=== PATIENT | male | born 1960 | race Caucasian/White ===

== ENCOUNTER 2016-05-01 09:45 | Emergency (ER) ==
[2016-05-01 09:52] VITALS: BP 133/87; TEMP 97.8; BMI 34.1
[2016-05-01] MEDS ORDERED: MORPHINE 4 MG/ML SYRINGE IM STA (10:05)
[2016-05-01] MEDS ORDERED: ZOFRAN 4 MG/2 ML IM STA (10:05)
[2016-05-01 10:24] LABS: BASOPHILS % (AUTO) 0.3 % (0.0-3.0); EOSINOPHILS # (AUTO) 0.2 K/ul (0.0-0.7); EOSINOPHILS % (AUTO) 2.1 % (0.0-7.0); HEMATOCRIT 47.5 % (42.0-52.0); HEMOGLOBIN 17.1 g/dl (14.0-18.0); IMMATURE GRANULOCYTE % (AUTO) 0.3 % (0.0-5.0); LYMPHOCYTES # (AUTO) 2.5 K/uL (0.60-3.4); LYMPHOCYTES % (AUTO) 32.8 (10.0-50.0); MEAN CORPUSCULAR HEMOGLOBIN 30.7 pg (27.0-31.0); MEAN CORPUSCULAR VOLUME 85.3 fl (80.0-94.0); MONOCYTES # (AUTO) 0.7 K/uL (0.4-2.0); MONOCYTES % (AUTO) 9.8 (0-10); NEUTROPHILS # (AUTO) 4.2 K/ul (2.0-6.9); NEUTROPHILS % (AUTO) 54.7; PLATELET COUNT 263 10^3/uL (140-440); RED BLOOD COUNT 5.57 10^6/ul (4.70-6.10); WHITE BLOOD COUNT 7.57 K/ul (4.2-10.2)
[2016-05-01 10:39] LABS: BILIRUBIN,URINE Negative (NEGATIVE); KETONES,URINE Negative (NEGATIVE); LEUKOCYTE ESTERASE ,URINE Negative (NEGATIVE); NITRITE,URINE Negative (NEGATIVE); PH,URINE 5.5 (5-9); PROTEIN,URINE Negative (NEGATIVE); URINE, BLOOD Trace-lysed (NEGATIVE)
[2016-05-01 10:41] LABS: ALBUMIN 3.8 g/dL (3.4-5.0); ALBUMIN/GLOBULIN RATIO 0.95; ANION GAP 14.3; BILIRUBIN,TOTAL 0.38 mg/dL (0.00-1.20); BUN/CREATININE RATIO 19.54; CALCIUM 9.4 mg/dL (8.2-10.2); CREATININE 1.33 mg/dL (0.60-1.10); POTASSIUM 4.3 mmol/L (3.5-5.1); TOTAL PROTEIN 7.8 g/dL (6.4-8.2)
[2016-05-01 10:42] LABS: ADD URINE MICROSCOPIC YES
--- NOTE | 2016-05-01 11:02 | CT ---
EXAM: CT of the abdomen pelvis without contrast History: Abdominal pain. Comparison: None available. Technique: Multiplanar CT images through the abdomen pelvis were obtained without the administratio n of IV contrast Findings: Lung bases are free of consolidation. No acute osseous abnormalities. Gallbladder is not well distended. Mild atherosclerotic vascular calcifications. No focal liver or splenic lesions. No peripancreatic inflammation. Adrenal glands are unremarkable. No renal stones and no hydronephrosis. The appendix is not dilated or inflamed. No bowel obstruction. No free air . No ascites. No bladder wall thickening. Prostatic calcifications. Prostate is not enlarged. N o perirectal inflammation. Small fat-containing bilateral inguinal hernias. Impression: No acute intra-abdominal or pelvic process.
--- NOTE | 2016-05-01 11:32 | US ---
EXAM: Testicular ultrasound HISTORY: Left scrotal pain for 2 days with no injury COMPARISON: Same day CT abdomen pelvis 05/01/2016 TECHNIQUE: Sonographic and Doppler evaluation of the testicles were performed. FINDINGS: The right testicle measures 4.7 x 2.0 x 3.1 cm. The epididymis is normal in appearance w ith to anechoic epididymal cyst measuring no greater than 0.4 cm and diameter. There is no varicoce le, hydrocele or mass. There is normal color Doppler flow without signs of torsion. The left testicle measures 4.3 x 1.9 x 3.0 cm. The epididymis is normal in appearance a single anec hoic epididymal cyst measuring 0.7 x 0.6 x 0.5 cm. There is no varicocele, hydrocele or mass. Ther e is normal color Doppler flow without signs of torsion. IMPRESSION: 1. No evidence of torsion. No acute abnormality of the left testicle. 2. Bilateral epididymal cysts are present.
--- NOTE | 2016-05-01 11:43 | ED.PDOC ---
General ED Provider: Dr. STEVE GUZMAN Chief Complaint: Abdominal Pain Stated Complaint: abdominal scrotal pain Time Seen by Physician: 10:00 (no trauma) Information Source: Patient Exam Limitations: No limitations Nursing and Triage Documentation Reviewed and Agree: Yes Complaint Exam - Complaint/Exam Patient Complains of: Reports: Scrotal pain Onset/Duration: 3 days Symptoms Are: Still present Timing: Intermittent Initial Severity: Mild Current Severity: Mild Location of Pain: Reports: Right, Left (lower abdomen) Character: Reports: Dull Aggravating: Reports: None Alleviating: Reports: None Associated Signs and Symptoms: Reports: Scrotal pain, Abdominal Pain. Denies: Diaphoresis, Back pain, Fever, Hematuria, Dysuria, Constipation, Blood in stool , Rectal pain, Appetite change, Nausea, Vomiting, Penile swelling, Penile discharge, Decreased urine output, Increased urine frequency, Increased thirst, Decreased activity, Lethargy, Scrotal swelling Review of Systems - Review Of Systems Constitutional: Reports: No symptoms Eyes: Reports: No symptoms Ears, Nose, Mouth, Throat: Reports: No symptoms Respiratory: Reports: No symptoms Cardiac: Reports: No symptoms GI: Reports: Abdominal pain : Reports: Other (scrotal pain) Musculoskeletal: Reports: No symptoms Skin: Reports: No symptoms Neurological: Reports: No symptoms Endocrine: Reports: No symptoms Hematologic/Lymphatic: Reports: No symptoms All Other Systems: Reviewed and Negative Past Medical History - Past Medical History Endocrine: Reports: None Cardiovascular: Reports: CAD, Hypertension Respiratory: Reports: None Hematological: Reports: None Gastrointestinal: Reports: None Genitourinary: Reports: None Neuro/Psych: Reports: None Musculoskeletal: Reports: None Cancer: Reports: None - Surgical History General Surgical History: Reports: None - Family History Family History: Reports: None - Social History Smoking Status: Current every day smoker, Heavy tobacco smoker Hx Substance Use: No Alcohol Screening: Occasionally Physical Exam - Physical Exam Appearance: Well-appearing, No pain distress, Well-nourished Eyes: ANDREA, EOMI, Conjunctiva clear ENT: Ears normal, Nose normal, Oropharynx normal Respiratory: Airway patent, Breath sounds clear, Breath sounds equal, Respirations nonlabored Cardiovascular: RRR, Pulses normal, No rub, No murmur GI/: Soft, Nontender, No masses, Bowel sounds normal, No Organomegaly Musculoskeletal: Normal strength, ROM intact, No edema, No calf tenderness Skin: Warm, Dry, Normal color Neurological: Sensation intact, Motor intact, Reflexes intact, Cranial nerves intact, Alert, Oriented Psychiatric: Affect appropriate, Mood appropriate Interpretation - Radiology Interpretation Radiology Interpretation By: Radiologist Radiology Results: No acute changes Re-Evaluation - Re-Evaluation Time of Re-Evaluation: 11:00 Status: Improved Vital Signs Stable: Yes Pain Level: 0 Appearance: NAD Lungs: Clear Skin: Warm and Dry Neuro: Alert and Oriented X3 CV: RRR - Re-Evaluation Time of Re-Evaluation: 11:43 Status: Improved Vital Signs Stable: Yes Pain Level: 0 Appearance: NAD Skin: Warm and Dry Neuro: Alert and Oriented X3 CV: RRR Critical Care Note - Critical Care Note Total Time (mins): 0 Course - Course Hematology/Chemistry: 05/01/16 10:04 05/01/16 10:18 Orders, Labs, Meds: Lab Review 05/01/16 05/01/16 05/01/16 10:04 10:10 10:18 WBC 7.57 RBC 5.57 Hgb 17.1 Hct 47.5 MCV 85.3 MCH 30.7 MCHC 36.0 H RDW Coeff of Denise 12.8 Plt Count 263 Immature Gran % (Auto) 0.3 Neut % (Auto) 54.7 Lymph % (Auto) 32.8 [place] % (Auto) 9.8 Eos % (Auto) 2.1 Baso % (Auto) 0.3 Immature Gran # (Auto) 0.0 Neut # 4.2 Lymph # 2.5 [place] # 0.7 Eos # 0.2 Baso # 0.0 Sodium 138 Potassium 4.3 Chloride 107 Carbon Dioxide 21 Anion Gap 14.3 BUN 26 H Creatinine 1.33 H Estimated GFR (MDRD) 56.00 BUN/Creatinine Ratio 19.54 Glucose 105 H Calcium 9.4 Total Bilirubin 0.38 AST 20 ALT 17 Alkaline Phosphatase 107 Total Protein 7.8 Albumin 3.8 Globulin 4.0 Albumin/Globulin Ratio 0.95 Urine Color Yellow Urine Clarity Clear Urine pH 5.5 Ur Specific [place] 1.020 Urine Protein Negative Urine Glucose (UA) Negative Urine Ketones Negative Urine Blood Trace-lysed Urine Nitrite Negative Urine Bilirubin Negative Urine Urobilinogen 0.2 Ur Leukocyte Esterase Negative Urine Microscopic RBC 2-5 Urine Microscopic WBC 0-2 Ur Squamous Epith Cells Not present Orders Category Date Time Status CBC W/ AUTO DIFF Stat LAB 05/01/16 10:04 Ordered COMPREHENSIVE METABOLIC PANEL Stat LAB 05/01/16 10:04 Ordered URINALYSIS C & S IF INDICATED Stat LAB 05/01/16 10:04 Uncollected URINALYSIS C & S IF INDICATED Stat LAB 05/01/16 10:10 Received Morphine Sulfate [Morphine 4 mg/ml Syringe] MEDS 05/01/16 10:05 Stat 4 mg IM ONCE STA Ondansetron HCl/Pf [Zofran 4 mg/2 ml] MEDS 05/01/16 10:05 Stat 4 mg IM ONCE STA CT ABDOMEN/PELVIS WO CONTRAST Stat RADS 05/01/16 10:04 Ordered ULTRASOUND SCROTUM [U/S SCROTUM] Stat RADS 05/01/16 10:35 Ordered Medications Discontinued Medications Generic Name Dose Route Start Last Admin Trade Name Freq PRN Reason Stop Dose Admin Morphine Sulfate 4 mg 05/01/16 10:05 05/01/16 10:24 Morphine 4 Mg/Ml Syringe IM 05/01/16 10:06 4 mg ONCE STA Administration Ondansetron HCl 4 mg 05/01/16 10:05 05/01/16 10:24 Zofran 4 Mg/2 Ml IM 05/01/16 10:06 4 mg ONCE STA Administration Vital Signs: Temp Pulse Resp BP Pulse Ox 05/01/16 09:45 97.8 F 62 20 133/87 96 Departure - Departure Time of Disposition: 11:43 Disposition: HOME SELF-CARE Discharge Problem: Abdominal pain Instructions: Abdominal Pain (ED), Pelvic Pain in Men (ED) Condition: Good Pt referred to PMD for follow-up: No Additional Instructions: Please call your Family Physician as soon as possible to schedule a follow-up appointment. Prescriptions: Hydrocodone/Acetaminophen [[place] 5-325 Tablet] 1 each PO Q6HR PRN #10 tablet PRN Reason: PAIN Allergies/Adverse Reactions: Allergies divalproex sodium [From Depakote] Allergy (Verified 05/01/16 09:54) lithium Allergy (Verified 05/01/16 09:54) Penicillins Allergy (Verified 05/01/16 09:54) Home Medications: Ambulatory Orders Citalopram Hydrobromide [Celexa] 20 mg PO @ hs #30 10/07/15 Diazepam [Valium] 10 mg PO QID #120 10/07/15 Diltiazem HCl [Cardizem] 30 mg PO BEDTIME 10/30/15 Hydrocodone/Acetaminophen [[place] 5-325 Tablet] 1 each PO Q6HR PRN #10 tablet Metoprolol Succinate 75 mg PO BID 05/01/16
== END 2016-05-01 11:53 | disposition home or self-care (01) ==
LOC: ED 09:45
DX: R10.32 Left lower quadrant pain (principal); N50.82 Scrotal pain; I25.10 Atherosclerotic heart disease of native coronary artery without angina pectoris; I10 Essential (primary) hypertension; F17.210 Nicotine dependence, cigarettes, uncomplicated; Z79.899 Other long term (current) drug therapy
CPT/HCPCS: 36415; 80053; 81001; 85025; 96372; 99282

== ENCOUNTER 2016-05-03 09:59 | Emergency (ER) ==
[2016-05-03 10:00] VITALS: BMI 34.1
[2016-05-03 10:02] VITALS: BP 153/100; TEMP 97.2
== END 2016-05-03 10:30 | disposition left against medical advice (07) ==
LOC: ED 09:59
DX: M54.5 Low back pain (principal)

== ENCOUNTER 2016-05-25 09:10 | Outpatient (CLI) ==
[2016-05-25 09:34] VITALS: BMI 34.0
== END 2016-05-25 09:11 ==
LOC: AMBL 09:10
PROVIDERS: ATTEND Emergency Medicine
DX: R05 Cough (principal); R51 Headache; R10.31 Right lower quadrant pain; R07.1 Chest pain on breathing; R73.9 Hyperglycemia, unspecified; R03.0 Elevated blood-pressure reading, without diagnosis of hypertension

== ENCOUNTER 2016-05-25 09:24 | Emergency (ER) ==
[2016-05-25 09:34] VITALS: BP 123/78; TEMP 100.2; BMI 34.0
[2016-05-25] MEDS ORDERED: MORPHINE 4 MG/ML SYRINGE IVP STA (09:37)
[2016-05-25] MEDS ORDERED: ZOFRAN 4 MG/2 ML IVP STA (09:37)
[2016-05-25] MEDS ORDERED: SOLU-MEDROL 125 MG IVP STA (09:43)
[2016-05-25] MEDS ORDERED: ROCEPHIN 1 GM in SODIUM CHLORIDE 100 ML IV STA (09:44)
[2016-05-25 10:03] LABS: ABG BASE EXCESS -2 (-2.0-2.0); ABG HCO3 21.7 (22.0-26.0); ABG PCO2 28.3 mmHg (35-45); ABG PH 7.494 (7.35-7.45); ABG TCO2 23 (22.0-28.0)
[2016-05-25 10:08] LABS: BASOPHILS % (AUTO) 0.4 % (0.0-3.0); EOSINOPHILS # (AUTO) 0.1 K/ul (0.0-0.7); EOSINOPHILS % (AUTO) 0.6 % (0.0-7.0); HEMATOCRIT 44.4 % (42.0-52.0); HEMOGLOBIN 15.7 g/dl (14.0-18.0); IMMATURE GRANULOCYTE % (AUTO) 0.2 % (0.0-5.0); LYMPHOCYTES # (AUTO) 1.2 K/uL (0.60-3.4); LYMPHOCYTES % (AUTO) 14.4 (10.0-50.0); MEAN CORPUSCULAR HEMOGLOBIN 30.4 pg (27.0-31.0); MEAN CORPUSCULAR HGB CONC 35.4 (31.8-35.4); MEAN CORPUSCULAR VOLUME 85.9 fl (80.0-94.0); MONOCYTES # (AUTO) 1.2 K/uL (0.4-2.0); MONOCYTES % (AUTO) 14.9 (0-10); NEUTROPHILS # (AUTO) 5.8 K/ul (2.0-6.9); NEUTROPHILS % (AUTO) 69.5; PLATELET COUNT 181 10^3/uL (140-440); RED BLOOD COUNT 5.17 10^6/ul (4.70-6.10); WHITE BLOOD COUNT 8.31 K/ul (4.2-10.2)
--- NOTE | 2016-05-25 10:14 | ED.PDOC ---
General ED Provider: Dr. IVAN NELSON JR Chief Complaint: Respiratory Complaint Stated Complaint: Cough, H/A, weak, hurts to breathe, cough. no Tylenol or Motrin Mild diarrhea. Sore throat today. Arrived per EMS. 2 packs per day. [ End ]4 days 100.2 92 28 93 123/78 12/12 xiomara last noc. has had neurontin in past unable to afford. 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 Time Seen by Physician: 10:13 Mode of Arrival: Walk-In Information Source: Patient Exam Limitations: No limitations Nursing and Triage Documentation Reviewed and Agree: No Review of Systems - Review Of Systems Constitutional: Reports: Fever, Malaise, Weakness Eyes: Reports: Pain, Photophobia Ears, Nose, Mouth, Throat: Reports: Throat pain Respiratory: Reports: Cough Cardiac: Reports: Chest pain (pleuritic only) GI: Reports: Abdominal pain (ruq with cough), Nausea : Reports: No symptoms Musculoskeletal: Reports: No symptoms Skin: Reports: No symptoms Neurological: Reports: Headache Endocrine: Reports: No symptoms Hematologic/Lymphatic: Reports: No symptoms All Other Systems: Other Past Medical History - Past Medical History Endocrine: Reports: None Cardiovascular: Reports: CAD, Hypertension, A-Fib Respiratory: Reports: None Hematological: Reports: None Gastrointestinal: Reports: None Genitourinary: Reports: None Neuro/Psych: Reports: None Musculoskeletal: Reports: None Cancer: Reports: None - Surgical History General Surgical History: Reports: None, Other (tympanic mastoidectomy) - Family History Family History: Reports: None - Social History Smoking Status: Current every day smoker, Heavy tobacco smoker 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) Alcohol Screening: None Physical Exam - Physical Exam Appearance: Ill-appearing, Obese Ill-appearing: Moderate Pain Distress: Moderate Eyes: ANDREA, EOMI, Conjunctiva clear ENT: Ears normal, Nose normal, Oropharynx normal, Erythema (throat) Neck: Supple Respiratory: Airway patent, Rhonchi, Wheezes Cardiovascular: RRR, Pulses normal, No rub, No murmur GI/: Soft, Nontender, No masses, Bowel sounds normal, No Organomegaly Musculoskeletal: Normal strength, ROM intact, No edema, No calf tenderness Skin: Warm, Dry, Normal color Neurological: Sensation intact, Motor intact, Reflexes intact, Cranial nerves intact, Alert, Oriented Psychiatric: Anxious Interpretation - Radiology Interpretation Radiology Interpretation By: Radiologist Radiology Results: Negative Exam Interpreted: CXR Re-Evaluation - Re-Evaluation Time of Re-Evaluation: 12:22 (states not on neurontin but also states stopped xarelto because of weakness while taking it- knows it is to prevent [facility](no evidence cva today)) Status: Improved Critical Care Note - Critical Care Note Total Time (mins): 0 Course - Course Hematology/Chemistry: 05/25/16 10:00 05/25/16 10:00 Orders, Labs, Meds: Lab Review 05/25/16 05/25/16 09:39 10:00 WBC 8.31 RBC 5.17 Hgb 15.7 Hct 44.4 MCV 85.9 MCH 30.4 MCHC 35.4 RDW Coeff of Denise 13.0 Plt Count 181 Immature Gran % (Auto) 0.2 Neut % (Auto) 69.5 Lymph % (Auto) 14.4 [place] % (Auto) 14.9 H Eos % (Auto) 0.6 Baso % (Auto) 0.4 Immature Gran # (Auto) 0.0 Neut # 5.8 Lymph # 1.2 [place] # 1.2 Eos # 0.1 Baso # 0.0 D-Dimer 0.70 Puncture Site Rbrach O2 Saturation 97.0 ABG pH 7.494 H ABG pCO2 28.3 L ABG pO2 83.0 L ABG HCO3 21.7 L ABG Total CO2 23 ABG Base Excess -2 FiO2 % 21.0 Sodium 132 L Potassium 4.3 Chloride 102 Carbon Dioxide 22 Anion Gap 12.3 BUN 15 Creatinine 1.03 Estimated GFR (MDRD) 75.00 BUN/Creatinine Ratio 14.56 Glucose 109 H Lactic Acid 5.9 Calcium 9.2 Total Bilirubin 0.64 AST 26 ALT 17 Alkaline Phosphatase 81 Total Creatine Kinase 330 CK-MB (CK-2) 1.2 CK-MB (CK-2) % 0.70373 Troponin I < 0.0100 B-Natriuretic Peptide 37 Total Protein 8.0 Albumin 3.6 Globulin 4.4 Albumin/Globulin Ratio 0.82 Procalcitonin 0.08 Orders Category Date Time Status ABG DRAW REQUEST Stat CARDIO 05/25/16 09:39 Completed EKG-(ED ONLY) Stat CARDIO 05/25/16 09:37 Completed ED IV/MEDIPORT/POWERPORT .ONCE EMERGENCY 05/25/16 09:37 Active ABG Stat LAB 05/25/16 09:39 Completed B-TYPE NATRIURETIC PEPTIDE Stat LAB 05/25/16 10:00 Completed BLOOD CULTURE Stat LAB 05/25/16 10:00 Received CBC W/ AUTO DIFF Stat LAB 05/25/16 10:00 Completed COMPREHENSIVE METABOLIC PANEL Stat LAB 05/25/16 10:00 Completed CREATINE KINASE Stat LAB 05/25/16 10:00 Completed D-DIMER Stat LAB 05/25/16 10:00 Completed LACTIC ACID Stat LAB 05/25/16 10:00 Completed PROCALCITONIN Stat LAB 05/25/16 10:00 Completed TROPONIN I Stat LAB 05/25/16 10:00 Completed 0.9 % Sodium Chloride [Saline Flush] MEDS 05/25/16 09:37 Active 1 syr IVF PRN PRN Ceftriaxone Sodium [Rocephin] MEDS 05/25/16 10:19 Discontinued 1 gm .ROUTE .STK-MED ONE Ceftriaxone Sodium [Rocephin] 1 gm MEDS 05/25/16 09:44 Discontinued 0.9 % Sodium Chloride [Sodium Chloride] 100 ml IV ONCE Methylprednisolone Sod Succ/Pf [Solu-Medrol 125 mg] MEDS 05/25/16 09:43 Discontinued 125 mg IVP ONCE STA Morphine Sulfate [Morphine 4 mg/ml Syringe] MEDS 05/25/16 09:37 Discontinued 4 mg IVP ONCE STA Ondansetron HCl/Pf [Zofran 4 mg/2 ml] MEDS 05/25/16 09:37 Discontinued 4 mg IVP ONCE STA CHEST, 2 VIEWS PA & LAT Stat RADS 05/25/16 11:10 Completed Medications Generic Name Dose Route Start Last Admin Trade Name Freq PRN Reason Stop Dose Admin Sodium Chloride 1 syr 05/25/16 09:37 05/25/16 10:39 Saline Flush IVF 1 syr PRN PRN Administration To flush IV Discontinued Medications Generic Name Dose Route Start Last Admin Trade Name Freq PRN Reason Stop Dose Admin Ceftriaxone Sodium 1 gm/ 100 mls @ 100 mls/hr 05/25/16 09:44 05/25/16 10:44 Sodium Chloride IV 05/25/16 10:43 100 mls/hr ONCE STA Administration Methylprednisolone Sodium Succinate 125 mg 05/25/16 09:43 05/25/16 10:42 Solu-Medrol 125 Mg IVP 05/25/16 09:44 125 mg ONCE STA Administration Morphine Sulfate 4 mg 05/25/16 09:37 05/25/16 10:33 Morphine 4 Mg/Ml Syringe IVP 05/25/16 09:38 4 mg ONCE STA Administration Ondansetron HCl 4 mg 05/25/16 09:37 05/25/16 10:37 Zofran 4 Mg/2 Ml IVP 05/25/16 09:38 4 mg ONCE STA Administration Vital Signs: Temp Pulse Resp BP Pulse Ox 05/25/16 09:27 100.2 F H 92 H 28 H 123/78 93 L KRYSTYNA Risk Score KRYSTYNA Risk Score: Risk Score Odds of by 30D 0 0.1 (0.1-0.2) 1 0.3 (0.2-0.3) 2 0.4 (0.3-0.5) 3 0.7 (0.6-0.9) 4 1.2 (1.0-1.5) 5 2.2 (1.9-2.6) 6 3.0 (2.5-3.6) 7 4.8 (3.8-6.1) Departure - Departure Time of Disposition: 12:15 Disposition: HOME SELF-CARE Discharge Problem: URTI (acute upper respiratory infection) Instructions: Upper Respiratory Infection (ED) Condition: Fair Pt referred to PMD for follow-up: Yes Additional Instructions: home rest tylenol or motrin for symptoms may use cough medication recheck PMD one week may follow with [facility] Prescriptions: Guaifenesin/Codeine Phosphate [Robitussin AC Syrup] 10 ml PO Q6H PRN #240 ml PRN Reason: Cough Ibuprofen [Motrin] 600 mg PO QID PRN #30 tablet PRN Reason: PAIN Allergies/Adverse Reactions: Allergies divalproex sodium [From Depakote] Allergy (Verified 05/25/16 09:34) lithium Allergy (Verified 05/25/16 09:34) Penicillins Allergy (Verified 05/25/16 09:34) Home Medications: Ambulatory Orders Citalopram Hydrobromide [Celexa] 20 mg PO @ hs #30 10/07/15 Diazepam [Valium] 10 mg PO QID PRN #120 10/07/15 Diltiazem HCl [Cardizem] 30 mg PO BEDTIME 10/30/15 Metoprolol Succinate 75 mg PO BID 05/01/16 Guaifenesin/Codeine Phosphate [Robitussin AC Syrup] 10 ml PO Q6H PRN #240 ml Ibuprofen [Motrin] 600 mg PO QID PRN #30 tablet 05/25/16 Rivaroxaban [Xarelto] 10 mg PO DAILY 05/25/16
[2016-05-25] MEDS ORDERED: ROCEPHIN ONE (10:19)
[2016-05-25 10:46] LABS: ALANINE AMINOTRANSFERASE 17 U/L (12-78); ALBUMIN 3.6 g/dL (3.4-5.0); ALBUMIN/GLOBULIN RATIO 0.82; ALKALINE PHOSPHATASE 81 U/L (50-136); ANION GAP 12.3; ASPARTATE AMINO TRANSFERASE 26 U/L (15-37); BILIRUBIN,TOTAL 0.64 mg/dL (0.00-1.20); BLOOD UREA NITROGEN 15 mg/dL (7-18); BUN/CREATININE RATIO 14.56; CALCIUM 9.2 mg/dL (8.2-10.2); CARBON DIOXIDE 22 mmol/L (21-32); CHLORIDE 102 mmol/L (98-107); CREATINE KINASE 330 U/L; CREATININE 1.03 mg/dL (0.60-1.10); GLUCOSE 109 mg/dL (70-100); POTASSIUM 4.3 mmol/L (3.5-5.1); SODIUM 132 mmol/L (136-145)
[2016-05-25 10:47] LABS: CREATINE KINASE MB 1.2 ng/ml (0.0-3.6)
--- NOTE | 2016-05-25 11:35 | DI ---
Examination: Two radiographic images of the chest. Comparison: 10/13/2013. Reason for study: Cough. FINDINGS: No pneumothorax, pleural effusion, or focal consolidation. The cardiac silhouette is not enlarged. Impression: No acute cardiopulmonary process.
== END 2016-05-25 12:27 | disposition home or self-care (01) ==
LOC: ED 09:24
DX: J06.9 Acute upper respiratory infection, unspecified (principal); F17.210 Nicotine dependence, cigarettes, uncomplicated; Z79.899 Other long term (current) drug therapy
CPT/HCPCS: 36415; 80053; 82550; 82553; 82803; 83605; 83880; 84145; 84484; 85025; 85379; 87040; 93005; 93010; 96365; 96375; 99283

== ENCOUNTER 2016-07-11 14:43 | Emergency (ER) ==
[2016-07-11 14:43] VITALS: BMI 34.0
[2016-07-11 14:48] VITALS: BP 133/81; TEMP 98
--- NOTE | 2016-07-11 15:15 | ED.PDOC ---
General ED Provider: Dr. IVAN NELSON JR Chief Complaint: Chest Wall Injury/Pain Stated Complaint: fell aprox 6 foot onto ladder and hurt left lower ribs. also has pain redness and bruising to abd[ End ]15 min 98.0 57 22 98% 133/81 8/10. tympanic mastoidectomy htn afib cad Time Seen by Physician: 15:07 Mode of Arrival: Walk-In Information Source: Patient Exam Limitations: No limitations Nursing and Triage Documentation Reviewed and Agree: No Review of Systems - Review Of Systems Constitutional: Reports: Malaise Eyes: Reports: No symptoms Ears, Nose, Mouth, Throat: Reports: No symptoms Respiratory: Reports: No symptoms Cardiac: Reports: No symptoms GI: Reports: No symptoms : Reports: No symptoms Musculoskeletal: Reports: Back pain, Muscle pain (left chest wall ) Skin: Reports: Lesions (abrasion laft thigh and left inner upper arm) All Other Systems: Other Past Medical History - Past Medical History Endocrine: Reports: None Cardiovascular: Reports: CAD, Hypertension, A-Fib Respiratory: Reports: None Hematological: Reports: None Gastrointestinal: Reports: None Genitourinary: Reports: None Neuro/Psych: Reports: None Musculoskeletal: Reports: None Cancer: Reports: None - Surgical History General Surgical History: Reports: None, Other (tympanic mastoidectomy) - Family History Family History: Reports: None - Social History Smoking Status: Current every day smoker, Heavy tobacco smoker 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) Alcohol Screening: None Physical Exam - Physical Exam Appearance: Ill-appearing Ill-appearing: Mild Pain Distress: Mild Eyes: ANDREA, EOMI, Conjunctiva clear ENT: Ears normal, Nose normal, Oropharynx normal Neck: Supple Respiratory: Airway patent, Breath sounds clear, Breath sounds equal, Respirations nonlabored Cardiovascular: RRR, Pulses normal, No rub, No murmur GI/: Soft, Nontender, No masses, Bowel sounds normal, No Organomegaly Musculoskeletal: Normal strength, ROM intact, No edema, No calf tenderness ( tender left chest wall) Skin: Warm, Dry, Normal color (note lesions) Neurological: Sensation intact, Motor intact, Reflexes intact, Cranial nerves intact, Alert, Oriented Critical Care Note - Critical Care Note Total Time (mins): 0 Course - Course Orders, Labs, Meds: Orders Category Date Time Status Hydrocodone Bit/Acetaminophen [[place] 7.5-325] MEDS 07/11/16 15:33 Discontinued 1 tab PO ONCE STA CT ABDOMEN/PELVIS WO CONTRAST Stat RADS 07/11/16 15:15 Completed RIBS, W/PA CHEST LEFT Stat RADS 07/11/16 15:07 Completed Medications Discontinued Medications Generic Name Dose Route Start Last Admin Trade Name Peterq PRN Reason Stop Dose Admin Acetaminophen/Hydrocodone Bitart 1 tab 07/11/16 15:33 07/11/16 15:43 [place] 7.5-325 PO 07/11/16 15:34 1 tab ONCE STA Administration Vital Signs: Temp Pulse Resp BP Pulse Ox 07/11/16 14:43 98.0 F 57 L 22 133/81 98 Departure - Departure Time of Disposition: 16:26 Disposition: HOME SELF-CARE Discharge Problem: Chest wall pain, Chest injury, Contusion Instructions: Costochondritis (ED), Acute Abdominal Pain (ED) Condition: Good Pt referred to PMD for follow-up: Yes Additional Instructions: Clear liquids today and until no nausea and pain decreasing return if pain increasing or vomiting Tylenol 500 four times a day [place] for pain not controlled by Tylenol limit acetaminophen to 4000mg per 24 hours should be improved in three days may use Motrin or aleve (NOT BOTH) for pain not controlled by Tylenol Prescriptions: Hydrocodone Bit/Acetaminophen [[place] 5-325] 1 - 2 tab PO Q6HR PRN #12 tablet PRN Reason: pain Allergies/Adverse Reactions: Allergies divalproex sodium [From Depakote] Allergy (Verified 07/11/16 14:48) lithium Allergy (Verified 07/11/16 14:48) Penicillins Allergy (Verified 07/11/16 14:48) Home Medications: Ambulatory Orders Citalopram Hydrobromide [Celexa] 20 mg PO @ hs #30 10/07/15 Diazepam [Valium] 10 mg PO QID PRN #120 10/07/15 Diltiazem HCl [Cardizem] 30 mg PO BEDTIME 10/30/15 Metoprolol Succinate 75 mg PO BID 05/01/16 Ibuprofen [Motrin] 600 mg PO QID PRN #30 tablet 05/25/16 Hydrocodone Bit/Acetaminophen [[place] 5-325] 1 - 2 tab PO Q6HR PRN #12 tablet 11/19
[2016-07-11] MEDS ORDERED: NORCO 7.5-325 PO STA (15:33)
--- NOTE | 2016-07-11 15:55 | DI ---
EXAM: Radiographs, chest and left rib HISTORY: Initial presentation for left lower rib pain following a fall. COMPARISON: 05/25/2016. TECHNIQUE: Four views. FINDINGS: Heart size is normal. Lungs are clear without pleural effusion or pneumothorax. No left rib fracture or other acute osseous abnormality detected. IMPRESSION: No acute post-traumatic abnormality of the chest.
--- NOTE | 2016-07-11 15:59 | CT ---
EXAM: CT Abdomen without contrast. CT Pelvis without contrast. HISTORY: Initial presentation for left upper quadrant pain and lower left rib pain following a fall . COMPARISON: 05/01/2016. TECHNIQUE: Multiple axial images of the abdomen and pelvis were obtained without intravenous contra st. Images were reformatted in the coronal plane. FINDINGS: Please note that evaluation of the abdominal and pelvic structures is limited due to lack of intravenous contrast. The lung bases are clear. Degenerative changes present in the spine. No acute osseous abnormality identified. No left lower rib fracture identified. The liver, gallbladder, pancreas, spleen, adrenal glands, and kidneys are without acute abnormality. The bowel is normal in course and caliber without evidence for obstruction or inflammatory process. The appendix is normal. Urinary bladder is unremarkable. Prostatic calcifications noted. No free fluid or free air identified. Atherosclerotic calcifications are present. IMPRESSION: No acute abnormality within the abdomen or pelvis.
== END 2016-07-11 16:45 | disposition home or self-care (01) ==
LOC: ED 14:43
DX: S29.9XXA Unspecified injury of thorax, initial encounter (principal); S30.1XXA Contusion of abdominal wall, initial encounter; M54.9 Dorsalgia, unspecified; S70.312A Abrasion, left thigh, initial encounter; S40.812A Abrasion of left upper arm, initial encounter; W17.89XA Other fall from one level to another, initial encounter; F17.210 Nicotine dependence, cigarettes, uncomplicated
CPT/HCPCS: 99283

== ENCOUNTER 2016-07-25 15:53 | Emergency (ER) ==
[2016-07-25 15:58] VITALS: BP 162/110; TEMP 99.7; BMI 32.5
[2016-07-25] MEDS ORDERED: NORCO 10-325 PO STA (16:13)
[2016-07-25 16:33] LABS: BASOPHILS % (AUTO) 0.2 % (0.0-3.0); EOSINOPHILS # (AUTO) 0.2 K/ul (0.0-0.7); EOSINOPHILS % (AUTO) 2.5 % (0.0-7.0); HEMATOCRIT 46.7 % (42.0-52.0); HEMOGLOBIN 16.5 g/dl (14.0-18.0); IMMATURE GRANULOCYTE % (AUTO) 0.1 % (0.0-5.0); LYMPHOCYTES # (AUTO) 2.7 K/uL (0.60-3.4); LYMPHOCYTES % (AUTO) 33.6 (10.0-50.0); MEAN CORPUSCULAR HEMOGLOBIN 30.7 pg (27.0-31.0); MEAN CORPUSCULAR HGB CONC 35.3 (31.8-35.4); MEAN CORPUSCULAR VOLUME 86.8 fl (80.0-94.0); MONOCYTES # (AUTO) 0.7 K/uL (0.4-2.0); NEUTROPHILS # (AUTO) 4.4 K/ul (2.0-6.9); NEUTROPHILS % (AUTO) 54.6; PLATELET COUNT 181 10^3/uL (140-440); RED BLOOD COUNT 5.38 10^6/ul (4.70-6.10); WHITE BLOOD COUNT 8.13 K/ul (4.2-10.2)
[2016-07-25 16:51] LABS: ALBUMIN 3.8 g/dL (3.4-5.0); ALBUMIN/GLOBULIN RATIO 1.09; ANION GAP 13.7; BILIRUBIN,TOTAL 0.48 mg/dL (0.00-1.20); BUN/CREATININE RATIO 16.03; CALCIUM 9.2 mg/dL (8.2-10.2); CREATININE 1.06 mg/dL (0.60-1.10); POTASSIUM 3.7 mmol/L (3.5-5.1); TOTAL PROTEIN 7.3 g/dL (6.4-8.2)
--- NOTE | 2016-07-25 17:47 | CT ---
EXAM: CT scan of the abdomen and pelvis with contrast HISTORY: Pain, injury TECHNIQUE: Imaging of the abdomen and pelvis was performed following the intravenous administration of contrast. 3 mm thin axial images and coronal and sagittal reconstructions were provided for int erpretation. Comparison 07/11/2016 CT scan of the abdomen and pelvis. FINDINGS: The liver, spleen, pancreas, adrenal glands and kidneys appear normal. The proximal uret ers are normal size. The small and large bowel loops are normal caliber. No retroperitoneal abnorm alities are seen. The appendix appears normal. The helical images obtained through the pelvis demonstrate a normal appearance of the rectum, urinar y bladder. There is no free fluid seen within the pelvis. Lung bases are clear. There is a questi onable nondisplaced fracture of the lateral aspect of the left ninth rib. Additional nondisplaced fr acture is suspected along the lateral left eighth rib. The findings are seen on sagittal reconstruct ion image number 19. No vertebral body fractures are seen. The sacrum appears intact. The femoral h ead are seen in normal position. The femoral neck appear intact. IMPRESSION: There is suspicion for nondisplaced fractures of the lateral aspect of the left eighth and ninth ribs. No other traumatic abnormalities are seen within the abdomen and pelvis.
--- NOTE | 2016-07-25 17:53 | CT ---
EXAM: CT scan of the thoracic spine without contrast HISTORY: Pain, trauma compared to previous. TECHNIQUE: Helical imaging of the thoracic spine was performed without contrast. Sagittal and [place] n[place] reconstructions and axial images were provided for interpretation. FINDINGS: The alignment of the thoracic and lumbar spine appears normal. The paraspinal soft tissu es are normal. The spinous processes are intact. IMPRESSION: No acute fracture dislocation seen within the thoracic spine.
--- NOTE | 2016-07-25 18:02 | ED.PDOC ---
General ED Provider: Dr. STEVE GUZMAN Chief Complaint: Chest Wall Injury/Pain Stated Complaint: chest wall pain left side Time Seen by Physician: 16:00 (fall 2 weeks ago c/o left ribs pain ) Mode of Arrival: Walk-In Information Source: Patient Exam Limitations: No limitations Nursing and Triage Documentation Reviewed and Agree: Yes (upper left sided abdominal pain , upper back pain) Trauma/Injury Complaint Exam - Trauma Complaint/Exam Location of Pain or Injury: Reports: Chest, Abdomen, Back (thoracic) Mechanism of Injury: Reports: Fall (2 weeks ago) Onset/Duration: 1 4days Symptoms Are: Still present Timing of Treatment: Day Initial Severity: Moderate Current Severity: Moderate Character: Reports: Aching Aggravating: Reports: None Alleviating: Reports: None Associated Signs and Symptoms: Denies: LOC, Confusion, Memory loss, Lethargy, Vomiting, Bleeding, Bruising, Swelling, Extremity disuse, Painful respiration, Hoarseness, Dysphagia, Hemoptysis, Significant blood loss Related History: Reports: Similar episode Penetrating Injury Risk Factors: Reports: None Nexus Low Risk Criteria: No post-midline CS tender, No evidence of intoxicat., No Altered LOC, No focal neuro deficit, No distracting injuries Glascow Coma Scale (see protocol): 15 Compartment Syndrome Risk Factors: Present: Pain (chest wall, upper back not cervical) Skin Findings: Present: Normal findings Differential Diagnoses: Fracture, Laceration, Sprain, Strain Review of Systems - Review Of Systems Constitutional: Reports: No symptoms Eyes: Reports: No symptoms Ears, Nose, Mouth, Throat: Reports: No symptoms Respiratory: Reports: No symptoms Cardiac: Reports: No symptoms GI: Reports: No symptoms : Reports: No symptoms Musculoskeletal: Reports: Back pain (chest wall pain) Skin: Reports: No symptoms Neurological: Reports: No symptoms Endocrine: Reports: No symptoms Hematologic/Lymphatic: Reports: No symptoms All Other Systems: Reviewed and Negative Past Medical History - Past Medical History Endocrine: Reports: None Cardiovascular: Reports: CAD, Hypertension, A-Fib Respiratory: Reports: None Hematological: Reports: None Gastrointestinal: Reports: None Genitourinary: Reports: None Neuro/Psych: Reports: None Musculoskeletal: Reports: None Cancer: Reports: None - Surgical History General Surgical History: Reports: None, Other (tympanic mastoidectomy) - Family History Family History: Reports: None - Social History Smoking Status: Current every day smoker, Heavy tobacco smoker 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) Alcohol Screening: None Physical Exam - Physical Exam Appearance: Well-appearing, No pain distress, Well-nourished Eyes: ANDREA, EOMI, Conjunctiva clear ENT: Ears normal, Nose normal, Oropharynx normal Respiratory: Airway patent, Breath sounds clear, Breath sounds equal, Respirations nonlabored Cardiovascular: RRR, Pulses normal, No rub, No murmur GI/: Soft, Nontender, No masses, Bowel sounds normal, No Organomegaly Musculoskeletal: Normal strength, ROM intact, No edema, No calf tenderness Skin: Warm, Dry, Normal color Neurological: Sensation intact, Motor intact, Reflexes intact, Cranial nerves intact, Alert, Oriented Psychiatric: Affect appropriate, Mood appropriate Interpretation - Radiology Interpretation Radiology Interpretation By: Radiologist Radiology Results: No acute changes Critical Care Note - Critical Care Note Total Time (mins): 0 Course - Course Hematology/Chemistry: 07/25/16 16:25 07/25/16 16:25 Orders, Labs, Meds: Lab Review 07/25/16 16:25 WBC 8.13 RBC 5.38 Hgb 16.5 Hct 46.7 MCV 86.8 MCH 30.7 MCHC 35.3 RDW Coeff of Denise 12.7 Plt Count 181 Immature Gran % (Auto) 0.1 Neut % (Auto) 54.6 Lymph % (Auto) 33.6 [place] % (Auto) 9.0 Eos % (Auto) 2.5 Baso % (Auto) 0.2 Immature Gran # (Auto) 0.0 Neut # 4.4 Lymph # 2.7 [place] # 0.7 Eos # 0.2 Baso # 0.0 Sodium 139 Potassium 3.7 Chloride 108 H Carbon Dioxide 21 Anion Gap 13.7 BUN 17 Creatinine 1.06 Estimated GFR (MDRD) 73.00 BUN/Creatinine Ratio 16.03 Glucose 147 H Calcium 9.2 Total Bilirubin 0.48 AST 28 ALT 23 Alkaline Phosphatase 125 Total Protein 7.3 Albumin 3.8 Globulin 3.5 Albumin/Globulin Ratio 1.09 Orders Category Date Time Status NPO REMINDER: IMAGING ONCE CARE 07/25/16 16:13 Completed CBC W/ AUTO DIFF Stat LAB 07/25/16 16:25 Completed COMPREHENSIVE METABOLIC PANEL Stat LAB 07/25/16 16:25 Completed Hydrocodone Bit/Acetaminophen [[place] 10-325] MEDS 07/25/16 16:13 Discontinued 1 tab PO ONCE STA CT ABDOMEN/PELVIS W CONTRAST Stat RADS 07/25/16 16:[address] THORACIC SPINE W/O CONTRAST Stat RADS 07/25/16 16:11 Completed Medications Discontinued Medications Generic Name Dose Route Start Last Admin Trade Name Peterq PRN Reason Stop Dose Admin Acetaminophen/Hydrocodone Bitart 1 tab 07/25/16 16:13 07/25/16 16:26 [place] 10-325 PO 07/25/16 16:14 1 tab ONCE STA Administration Vital Signs: Temp Pulse Resp BP Pulse Ox 07/25/16 15:54 99.7 F H 81 20 162/110 H 96 Departure - Departure Time of Disposition: 18:02 (nurse present during D/C INSTRUCTION) Disposition: HOME SELF-CARE Discharge Problem: Chest wall pain, Chest injury Fracture of rib Qualifiers: Encounter type: initial encounter Fracture type: closed Laterality: left Instructions: Rib Fracture (ED) Condition: Good Pt referred to PMD for follow-up: No Additional Instructions: Please call your Family Physician as soon as possible to schedule a follow-up appointment. Allergies/Adverse Reactions: Allergies divalproex sodium [From Depakote] Allergy (Verified 07/25/16 15:59) lithium Allergy (Verified 07/25/16 15:59) Penicillins Allergy (Verified 07/25/16 15:59) Home Medications: Ambulatory Orders Citalopram Hydrobromide [Celexa] 20 mg PO @ hs #30 10/07/15 Diazepam [Valium] 10 mg PO QID PRN #120 10/07/15 Diltiazem HCl [Cardizem] 30 mg PO BEDTIME 10/30/15 Metoprolol Succinate 75 mg PO BID 05/01/16
== END 2016-07-25 18:13 | disposition home or self-care (01) ==
LOC: ED 15:53
DX: S05.01XA Injury of conjunctiva and corneal abrasion without foreign body, right eye, initial encounter (principal)
CPT/HCPCS: 36415; 80053; 85025; 99282

== ENCOUNTER 2017-03-05 14:49 | Emergency (ER) ==
[2017-03-05 14:52] VITALS: BP 173/107; TEMP 99.6; BMI 34.0
--- NOTE | 2017-03-05 15:05 | ED.PDOC ---
General ED Provider: Dr. STEVE GUZMAN Chief Complaint: Sore Throat Stated Complaint: sore throat Time Seen by Physician: 15:00 Mode of Arrival: Walk-In Information Source: Patient Exam Limitations: No limitations Nursing and Triage Documentation Reviewed and Agree: Yes Reviewed sepsis parameters & appropriate labs ordered?: Yes (seen with martina at all times ) System Inflammatory Response Syndrome: Not Applicable Sepsis Protocol: For patient's 13 years and over: Temp is 96.8 and below OR 101 and greater Pulse >90 BPM Resp >20/minute Acutely Altered Mental Status Are patient's symptoms suggestive of a new infection, such as: -Pneumonia -Skin, Soft Tissue -Endocarditis -UTI -Bone, Joint Infection -Implantable Device -Acute Abdominal Infection -Wound Infection -Meningitis -Blood Stream Catheter Infection -Unknown EENT Complaint Exam - Throat Complaint/Exam Onset/Duration: 7 days with post nasal drip Symptoms Are: Still present Timimg: Intermittent Initial Severity: Mild Current Severity: Mild Aggravating: Reports: Eating Alleviating: Reports: None Associated Signs and Symptoms: Reports: Dysphagia, Cough, Nasal congestion. Denies: Fever, Drooling, Foreign body sensation, Chills, Wheezing, Hoarseness, Sinus discomfort, Difficulty breathing, Lethargy, Irritability, Decreased activity, Vomiting, Diarrhea, Decreased hearing, Ear drainage Related History: Reports: Similar Episode Uvula Midline: Yes Iva-tonsillar Fluctuence: No Scarlatinaform Rash Present: No Stridor Present: No Sinus Tenderness Present: No Tonsillar Hypertrophy Present: No Tonsillar Exudate Present: No Iva-tonsillar Swelling Present: No Adenopathy Present: No Splenomegaly Present: No Differential Diagnoses: Pharyngitis Review of Systems - Review Of Systems Constitutional: Reports: No symptoms Eyes: Reports: No symptoms Ears, Nose, Mouth, Throat: Reports: Throat pain Respiratory: Reports: No symptoms Cardiac: Reports: No symptoms GI: Reports: No symptoms : Reports: No symptoms Musculoskeletal: Reports: No symptoms Skin: Reports: No symptoms Neurological: Reports: No symptoms Endocrine: Reports: No symptoms Hematologic/Lymphatic: Reports: No symptoms All Other Systems: Reviewed and Negative Past Medical History - Past Medical History Previously Healthy: Yes Endocrine: Reports: None Cardiovascular: Reports: CAD, Hypertension, A-Fib Respiratory: Reports: None Hematological: Reports: None Gastrointestinal: Reports: None Genitourinary: Reports: None Neuro/Psych: Reports: None Musculoskeletal: Reports: None Cancer: Reports: None - Surgical History General Surgical History: Reports: None, Other (tympanic mastoidectomy) - Family History Family History: Reports: None - Social History Smoking Status: Current every day smoker, Heavy tobacco smoker 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) Alcohol Screening: None Physical Exam - Physical Exam Appearance: Well-appearing, No pain distress, Well-nourished Eyes: ANDREA, EOMI, Conjunctiva clear ENT: Ears normal, Nose normal, Oropharynx normal Respiratory: Airway patent, Breath sounds clear, Breath sounds equal, Respirations nonlabored Cardiovascular: RRR, Pulses normal, No rub, No murmur GI/: Soft, Nontender, No masses, Bowel sounds normal, No Organomegaly Musculoskeletal: Normal strength, ROM intact, No edema, No calf tenderness Skin: Warm, Dry, Normal color Neurological: Sensation intact, Motor intact, Reflexes intact, Cranial nerves intact, Alert, Oriented Psychiatric: Affect appropriate, Mood appropriate Critical Care Note - Critical Care Note Total Time (mins): 0 Course - Course Vital Signs: Temp Pulse Resp BP Pulse Ox 03/05/17 14:50 99.6 F 67 16 173/107 H 95 Departure - Departure Time of Disposition: 15:04 Disposition: HOME SELF-CARE Discharge Problem: Sore throat symptom, Bronchitis Pharyngitis Qualifiers: Pharyngitis/tonsillitis etiology: unspecified etiology Qualified Code(s): J02.9 - Acute pharyngitis, unspecified Instructions: Pharyngitis (ED) Condition: Good Pt referred to PMD for follow-up: Yes Additional Instructions: Please call your Family Physician as soon as possible to schedule a follow-up appointment. Allergies/Adverse Reactions: Allergies divalproex sodium [From Depakote] Allergy (Verified 03/05/17 14:52) lithium Allergy (Verified 03/05/17 14:52) Penicillins Allergy (Verified 03/05/17 14:52) Home Medications: Ambulatory Orders Diltiazem HCl [Cardizem] 30 mg PO BEDTIME 10/30/15 Metoprolol Succinate 75 mg PO BID 05/01/16 Nitroglycerin [Nitrostat] 0.4 mg SL Q5MIN X 3 DOSES PRN 03/05/17
== END 2017-03-05 15:38 | disposition home or self-care (01) ==
LOC: ED 14:49
DX: J02.9 Acute pharyngitis, unspecified (principal); J40 Bronchitis, not specified as acute or chronic; F17.210 Nicotine dependence, cigarettes, uncomplicated
CPT/HCPCS: 36415; 86308; 99283

== ENCOUNTER 2017-06-16 16:30 | Emergency (ER) ==
[2017-06-16 16:31] VITALS: BMI 34.0
[2017-06-16 16:34] VITALS: BP 133/79; TEMP 98.5
--- NOTE | 2017-06-16 17:04 | ED.PDOC ---
General ED Provider: Dr. NITA CONTEH Chief Complaint: Sore Throat Stated Complaint: States throat has been swollen for 1 month, started hurting 3 days ago. States unable to swallow meds and food gets stuck Time Seen by Physician: 16:57 Mode of Arrival: Walk-In Information Source: Patient Nursing and Triage Documentation Reviewed and Agree: Yes Reviewed sepsis parameters & appropriate labs ordered?: Yes System Inflammatory Response Syndrome: Not Applicable Sepsis Protocol: For patient's 13 years and over: Temp is 96.8 and below OR 101 and greater Pulse >90 BPM Resp >20/minute Acutely Altered Mental Status Are patient's symptoms suggestive of a new infection, such as: -Pneumonia -Skin, Soft Tissue -Endocarditis -UTI -Bone, Joint Infection -Implantable Device -Acute Abdominal Infection -Wound Infection -Meningitis -Blood Stream Catheter Infection -Unknown System Inflammatory Response Syndrome: Not Applicable EENT Complaint Exam - Throat Complaint/Exam Onset/Duration: 3 days Symptoms Are: Still present Timimg: Intermittent Aggravating: Reports: Eating (mostly solids ) Associated Signs and Symptoms: Reports: Dysphagia (for solids ) Uvula Midline: Yes Iva-tonsillar Fluctuence: No Scarlatinaform Rash Present: No Stridor Present: No Sinus Tenderness Present: No Tonsillar Hypertrophy Present: No Tonsillar Exudate Present: No Adenopathy Present: No Splenomegaly Present: No Differential Diagnoses: Pharyngitis, Tonsillitis, URI Review of Systems - Review Of Systems Constitutional: Reports: No symptoms Eyes: Reports: No symptoms Ears, Nose, Mouth, Throat: Reports: No symptoms Respiratory: Reports: No symptoms Cardiac: Reports: No symptoms GI: Reports: No symptoms : Reports: No symptoms Musculoskeletal: Reports: No symptoms Skin: Reports: No symptoms Neurological: Reports: No symptoms Endocrine: Reports: No symptoms Hematologic/Lymphatic: Reports: No symptoms All Other Systems: Reviewed and Negative Past Medical History - Past Medical History Previously Healthy: Yes Endocrine: Reports: Hypothyroid Cardiovascular: Reports: CAD, Hypertension, A-Fib Respiratory: Reports: None Hematological: Reports: None Gastrointestinal: Reports: Liver (Hepatitis C ) Genitourinary: Reports: None Neuro/Psych: Reports: None Musculoskeletal: Reports: None Cancer: Reports: None - Surgical History General Surgical History: Reports: Other (tympanic mastoidectomy) - Family History Family History: Reports: None - Social History Smoking Status: Current every day smoker, Heavy tobacco smoker 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) Alcohol Screening: None Physical Exam - Physical Exam Appearance: Ill-appearing Ill-appearing: Mild Pain Distress: Moderate Eyes: ANDRAE, EOMI, Conjunctiva clear Neck: Nonsupple (left cervical area tendeness) Respiratory: Airway patent, Breath sounds clear, Breath sounds equal, Respirations nonlabored Cardiovascular: RRR, Pulses normal, No rub, No murmur GI/: Soft, Nontender, No masses, Bowel sounds normal, No Organomegaly Musculoskeletal: Normal strength, ROM intact, No edema, No calf tenderness Skin: Warm, Dry, Normal color Neurological: Sensation intact, Motor intact, Reflexes intact, Cranial nerves intact, Alert, Oriented Psychiatric: Anxious Interpretation - Radiology Interpretation Radiology Interpretation By: Radiologist Radiology Results: Negative Exam Interpreted: CT Scan (neck and chest ) Critical Care Note - Critical Care Note Total Time (mins): 0 Comments: Data inquiry 05/23/2017 DIAZEPAM 10MG 120/30 Private Pay [facility]/ [facility] OV[facility] MD 04/27/2017 DIAZEPAM 10MG 120/30 Private Pay [facility]/ [facility] MD 03/31/2017 DIAZEPAM 10MG 120/30 Private Pay [facility]/ [facility] MD 03/06/2017 HYDROCODONE 4 OZ 70/7 Private Pay [facility]/ [facility] ST[facility]E GUZMAN MD Course - Course Hematology/Chemistry: 06/16/17 17:10 06/16/17 17:10 Orders, Labs, Meds: Orders Category Date Time Status CBC W/ AUTO DIFF Stat LAB 06/16/17 16:56 Ordered COMPREHENSIVE METABOLIC PANEL Stat LAB 06/16/17 16:54 Ordered RAPID STREP SCREEN [MOLECULAR GROUP A STREP] Stat LAB 06/16/17 16:56 Uncollected THYROID STIMULATING HORMONE Stat LAB 06/16/17 16:[address] CHEST W/O CONTRAST Stat RADS 06/16/17 16:[address] SOFT TISSUE NECK W/O CONTR Stat RADS 06/16/17 16:54 Ordered Vital Signs: Temp Pulse Resp BP Pulse Ox 06/16/17 16:31 98.5 F 83 18 133/79 96 Departure - Departure Time of Disposition: 17:49 Disposition: HOME SELF-CARE Discharge Problem: Throat pain in adult, Cough in adult Acute pharyngitis Qualifiers: Pharyngitis/tonsillitis etiology: unspecified etiology Qualified Code(s): J02.9 - Acute pharyngitis, unspecified Instructions: Pharyngitis (ED), Chronic Cough (ED), How to Stop Smoking (ED) Condition: Fair Pt referred to PMD for follow-up: Yes IPMP verified?: Yes (noted on critical care notes. ) Additional Instructions: Followup with PCP in 3 days to get a referral to ENT for further test. Take Medications as prescribed Return to or got to the ER if worse. Prescriptions: Azithromycin [Zithromax] 250 mg PO DIRECTED #6 tablet Benzonatate [Tessalon Perle] 100 mg PO TID #20 capsule Methylprednisolone [Medrol Dosepak] 4 mg PO DIRECTED #1 pkg Allergies/Adverse Reactions: Allergies divalproex sodium [From Depakote] Allergy (Verified 06/16/17 16:35) lithium Allergy (Verified 06/16/17 16:35) Penicillins Allergy (Verified 06/16/17 16:35) Home Medications: Ambulatory Orders Diltiazem HCl [Cardizem] 30 mg PO BEDTIME 10/30/15 Metoprolol Succinate 75 mg PO BID 05/01/16 Nitroglycerin [Nitrostat] 0.4 mg SL Q5MIN X 3 DOSES PRN 03/05/17 Azithromycin [Zithromax] 250 mg PO DIRECTED #6 tablet 06/16/17 Benzonatate [Tessalon Perle] 100 mg PO TID #20 capsule 06/16/17 Methylprednisolone [Medrol Dosepak] 4 mg PO DIRECTED #1 pkg 06/16/17 Disposition Discussed With: Patient
[2017-06-16] MEDS ORDERED: ROBITUSSIN DM SYRUP PO STA (17:22)
--- NOTE | 2017-06-16 17:27 | CT ---
EXAM: Noncontrast CT of the chest HISTORY: Lower neck pain COMPARISON: 07/11/2016 chest x-ray TECHNIQUE: Noncontrast CT of the chest FINDINGS: Minimal posterior right upper lobe and right lower lobe tree in bud type nodularity is present. Ther e is minimal right middle lobe ground-glass opacity. There is mild bilateral lower lobe atelectasis. No pneumothorax or pleural effusion is seen. A left upper lobe calcified granuloma is seen. Heart size is normal. Atherosclerotic calcifications are seen including coronary arteries. No media stinal lymphadenopathy is seen. Calcified left hilar lymph node is present. A remote left rib fracture is seen. There are mild to mild degenerative changes of the thoracic spine . There is mild remote appearing compression deformity of a mid thoracic vertebral body. IMPRESSION: Minimal right upper lobe and right lower lobe tree in bud type nodularity compatible small airway inf ection or inflammation. Minimal right middle lobe atelectasis or pneumonitis. Evidence of prior granulomatous infection. Atherosclerosis including coronary arteries.
--- NOTE | 2017-06-16 17:29 | CT ---
Exam: CT of the neck with contrast History: Dysphagia and left neck tenderness Technique: [address] of the neck without contrast FINDINGS: A specific area of concern has not been designated. The pharynx and trachea appear normal . Normal esophagus and prevertebral soft tissues. Normal thyroid, submandibular and parotid glands. No pathologic lymph node enlargement or abundance. No inflammatory changes of the deep or superficia l fat planes. The lung apices are clear. No acute findings of the skeleton. Endplate degenerative change of the cervical spine. Mucoperiosteal thickening of the maxillary sinuses. Impression: 1. No acute abnormalities of the neck soft tissues.
== END 2017-06-16 18:24 | disposition home or self-care (01) ==
LOC: ED 16:30
DX: J02.9 Acute pharyngitis, unspecified (principal); R05 Cough; R13.10 Dysphagia, unspecified; F17.210 Nicotine dependence, cigarettes, uncomplicated
CPT/HCPCS: 36415; 80053; 84443; 85025; 87651; 99283

== ENCOUNTER 2017-10-29 16:37 | Inpatient (IN) ==
[2017-10-29] MEDS ORDERED: SODIUM CHLORIDE 1,000 ML IV STA ×2 (16:41→18:41)
[2017-10-29] MEDS ORDERED: LOMOTIL PO STA (16:41)
[2017-10-29 16:43] VITALS: BMI 32.2
--- NOTE | 2017-10-29 17:14 | CT ---
EXAM: CT abdomen pelvis without contrast TECHNIQUE: Helical axial CT of the abdomen and pelvis was performed without contrast with coronal an d sagittal reconstructions. COMPARISON: CT abdomen pelvis from 07/25/2016 HISTORY: Abdominal pain FINDINGS: There is no acute abnormality. Specifically there is no mesenteric inflammation, free air, free fluid or bowel wall thickening or edema or pathologic lymph nodes or obstruction or ileus. The liver, spleen, pancreas,and adrenal glands show no acute abnormality. Lung bases are well-aerate d. There is no hiatal hernia. The gallbladder is normal with no stones or inflammation. There is no biliary or pancreatic ductal dilatation. There are no suspicious renal masses or large cysts and no hydronephrosis. There are no kidney stones . Both ureters demonstrate normal course and caliber. There is no filling defect in the urinary blad isabelle. The appendix is unremarkable. There are no inflamed colonic diverticula. There are no abdominal wall hernias. There is advanced calcific atherosclerosis of the aorta. There are no acute osseous abnorma lities. IMPRESSION: 1. No acute abnormality in the abdomen or pelvis. 2. Atherosclerosis.
[2017-10-29] MEDS ORDERED: MORPHINE 4 MG/ML SYRINGE IVP STA (17:30)
--- NOTE | 2017-10-29 17:46 | ED.PDOC ---
General ED Provider: Dr. STEVE GUZMAN Chief Complaint: Diarrhea Stated Complaint: DIARRHEA , ABDOMINAL PAIN Time Seen by Physician: 16:39 (SEEN WITH KIMMY AT ALL TIMES ) Mode of Arrival: Walk-In Information Source: Patient Exam Limitations: No limitations Primary Care Provider: MARCIAL AWAD Nursing and Triage Documentation Reviewed and Agree: Yes Does patient meet sepsis criteria?: No If yes, has appropriate treatment been initiated?: No (NO BALCK OR BLOODY STOOLS ) System Inflammatory Response Syndrome: Not Applicable Sepsis Protocol: For patient's 13 years and over: Temp is 96.8 and below OR 101 and greater Pulse >90 BPM Resp >20/minute Acutely Altered Mental Status Are patient's symptoms suggestive of a new infection, such as: -Pneumonia -Skin, Soft Tissue -Endocarditis -UTI -Bone, Joint Infection -Implantable Device -Acute Abdominal Infection -Wound Infection -Meningitis -Blood Stream Catheter Infection -Unknown GI Complaint Exam - Abdominal Pain Complaint/Exam Onset: Gradual Duration: 1 DAY MAY HAVE HAD SOME SPILED FOOD Symptoms Are: Still present (NO VOMITING IN ED HAD SOME LOOSE STOOLS) Initial Severity: Moderate Current Severity: None Location of Pain: Diffuse Radiates To: Denies: Chest, Back, Flank, LLQ, RLQ Character: Denies: Cramping Aggravating: Denies: Food Alleviating: Denies: Rest Associated Signs and Symptoms: Reports: Vomiting, Diarrhea. Denies: Diaphoresis , Fever, Cough, Chest pain, Dizziness, Back pain, Constipation, Blood in stool, Dysuria, Urinary frequency, Decreased urine output, Decreased appetite, Discharge, Nausea, Decreased activity AAA Risk Factors: Reports: None Cardiac Risk Factors: Reports: Hypertension Testicular Torsion Risk Factors: Reports: None Surgical Obstruction Risk Factors: Reports: None Related Surgical History: Reports: None Abdominal Findings: Present: None Differential Diagnoses: Appendicitis, Bowel Obstruction, Constipation, Gastroenteritis, UTI Review of Systems - Review Of Systems Constitutional: Reports: No symptoms Eyes: Reports: No symptoms Ears, Nose, Mouth, Throat: Reports: No symptoms Respiratory: Reports: No symptoms Cardiac: Reports: No symptoms GI: Reports: Abdominal pain, Diarrhea, Nausea, Vomiting : Reports: No symptoms Musculoskeletal: Reports: No symptoms Skin: Reports: No symptoms Neurological: Reports: No symptoms Endocrine: Reports: No symptoms Hematologic/Lymphatic: Reports: No symptoms All Other Systems: Reviewed and Negative Past Medical History - Past Medical History Previously Healthy: Yes Endocrine: Reports: Hypothyroid Cardiovascular: Reports: CAD, Hypertension, A-Fib Respiratory: Reports: None Hematological: Reports: None Gastrointestinal: Reports: Liver (Hepatitis C ) Genitourinary: Reports: None Neuro/Psych: Reports: None Musculoskeletal: Reports: None Cancer: Reports: None - Surgical History General Surgical History: Reports: Other (tympanic mastoidectomy) - Family History Family History: Reports: None - Social History Smoking Status: Current every day smoker, Heavy tobacco smoker 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) Alcohol Screening: None Physical Exam - Physical Exam Appearance: Well-appearing, No pain distress, Well-nourished Eyes: ANDREA, EOMI, Conjunctiva clear ENT: Ears normal, Nose normal, Oropharynx normal Respiratory: Airway patent, Breath sounds clear, Breath sounds equal, Respirations nonlabored Cardiovascular: RRR, Pulses normal, No rub, No murmur GI/: Soft, Nontender, No masses, Bowel sounds normal, No Organomegaly Musculoskeletal: Normal strength, ROM intact, No edema, No calf tenderness Skin: Warm, Dry, Normal color Neurological: Sensation intact, Motor intact, Reflexes intact, Cranial nerves intact, Alert, Oriented Psychiatric: Affect appropriate, Mood appropriate Interpretation - Radiology Interpretation Radiology Interpretation By: Radiologist Radiology Results: No acute changes Critical Care Note - Critical Care Note Total Time (mins): 0 Course - Course Hematology/Chemistry: 10/29/17 17:06 10/29/17 17:06 Orders, Labs, Meds: Lab Review 10/29/17 10/29/17 17:06 17:06 WBC 13.13 H RBC 5.44 Hgb 16.4 Hct 46.6 MCV 85.7 MCH 30.1 MCHC 35.2 RDW Coeff of Denise 12.5 Plt Count 281 Immature Gran % (Auto) 0.3 Neut % (Auto) 52.8 Lymph % (Auto) 34.5 Stephens % (Auto) 10.8 H Eos % (Auto) 1.4 Baso % (Auto) 0.2 Immature Gran # (Auto) 0.0 Neut # (Auto) 6.9 Lymph # (Auto) 4.5 H Stephens # (Auto) 1.4 Eos # (Auto) 0.2 Baso # (Auto) 0.0 Sodium 136 Potassium 4.4 Chloride 103 Carbon Dioxide 20 L Anion Gap 17.4 BUN 33 H Creatinine 2.48 H Estimated GFR (MDRD) 27.00 BUN/Creatinine Ratio 13.30 Glucose 120 H Calcium 10.3 H Total Bilirubin 0.6 AST 23 ALT 23 Alkaline Phosphatase 93 Total Protein 8.3 H Albumin 4.3 Globulin 4.0 Albumin/Globulin Ratio 1.08 Orders Category Date Time Status IV [ED IV/MEDIPORT/POWERPORT] .ONCE EMERGENCY 10/29/17 16:41 Active CBC W/ AUTO DIFF Stat LAB 10/29/17 17:06 Completed COMPREHENSIVE METABOLIC PANEL Stat LAB 10/29/17 17:06 Completed 0.9 % Sodium Chloride [Saline Flush] MEDS 10/29/17 16:41 Active 1 syr IVF PRN PRN Diphenoxylate HCl/Atropine [Lomotil] MEDS 10/29/17 16:41 Discontinued 2 tab PO ONCE STA Morphine Sulfate [Morphine 4 mg/ml Syringe] MEDS 10/29/17 17:30 Discontinued 4 mg IVP ONCE STA Sodium Chloride 0.9% [Sodium Chloride] 1,000 ml MEDS 10/29/17 16:[address] ABDOMEN/PELVIS WO CONTRAST Stat RADS 10/29/17 16:40 Completed Medications Generic Name Dose Route Start Last Admin Trade Name Freq PRN Reason Stop Dose Admin Sodium Chloride 1 syr 10/29/17 16:41 10/29/17 17:09 Saline Flush IVF 1 syr PRN PRN Administration To flush IV Discontinued Medications Generic Name Dose Route Start Last Admin Trade Name Freq PRN Reason Stop Dose Admin Diphenoxylate HCl/Atropine 2 tab 10/29/17 16:41 10/29/17 16:57 Lomotil PO 10/29/17 16:42 2 tab ONCE STA Administration Sodium Chloride 1,000 mls @ 1,000 mls/hr 10/29/17 16:41 10/29/17 17:09 Sodium Chloride IV 10/29/17 17:40 1,000 mls/hr BOLUS STA Administration Morphine Sulfate 4 mg 10/29/17 17:30 10/29/17 17:37 Morphine 4 Mg/Ml Syringe IVP 10/29/17 17:31 4 mg ONCE STA Administration Vital Signs: Temp Pulse Resp BP Pulse Ox 10/29/17 16:37 98.3 F 74 20 112/76 97 Departure - Departure Time of Disposition: 19:00 Disposition: HOME SELF-CARE Discharge Problem: Diarrhea Abdominal pain Qualifiers: Abdominal location: generalized Qualified Code(s): R10.84 - Generalized abdominal pain Instructions: Abdominal Pain (ED), Gas and Bloating (ED), Acute Diarrhea (ED), Acute Nausea and Vomiting (ED) Condition: Good Pt referred to PMD for follow-up: Yes IPMP verified?: No Additional Instructions: Please call your Family Physician as soon as possible to schedule a follow-up appointment. Allergies/Adverse Reactions: Allergies divalproex sodium [From Depakote] Allergy (Verified 10/29/17 16:43) lithium Allergy (Verified 10/29/17 16:43) Penicillins Allergy (Verified 10/29/17 16:43) Home Medications: Ambulatory Orders Diltiazem HCl [Cardizem] 30 mg PO BEDTIME 10/30/15 Metoprolol Succinate 75 mg PO BID 05/01/16 Nitroglycerin [Nitrostat] 0.4 mg SL Q5MIN X 3 DOSES PRN 03/05/17 Aspirin [Aspirin Chewable] 81 mg PO DAILY 10/29/17
[2017-10-29] MEDS ORDERED: NITROSTAT SL PRN (18:49)
[2017-10-29] MEDS ORDERED: SODIUM CHLORIDE 1,000 ML IV SCH (19:00)
--- NOTE | 2017-10-29 20:22 | PCM ---
- Chief Complaint Chief Complaint: Diarrhea/Abdominal Pain/CARLOS - History of Present Illness History of Present Illness: 57 yr old WM presented to ER tonight around 16:[address] Wu. PCP Dr. Aldair Macias. No SIRS criteria. Patient reported 1 day diarrhea x 6 after eating food that left out and ?spoiled. No vomiting while in ER but did have some loos stools. Abd pain moderate, diffuse,no chest/back, flank, LLQ/RLQ pain. NO cramping. Not worse by food. He reported vomiting and diarrhea w/o fever, cough, chest pain, dizziness, back pain, constipation, blood in stool, dysuria, urinary freq/hesitancy, burning, decreased output, decreased po intake. History of HTN. DDX considered in ER appendicitis, bowel obs, constipation, Gastroenteritis, UTI. ROS from ER note reviewed Ad pain, N/V/D. History of hypothyroid, CAD, HTN, A-Fib, history of Hep C. Surgery tympanic mastoidectomy. Heavy tobacco use, history of substance use. Exam listed completely normal. CT abd pelvis w/o contrast. No acute findings. NO mesenteric inflammation, tabby air. NO renal masses or large cysts and no hydronephrotis. NO stones. No filling defect. NO hernias. Advanced atherosclerosis of aorta. Labs reviewed prior to seeing patient from ER. Mild leukocytosis white count 13.13K, 10.8% mono ALC 4.5. Sodium 136 nl, K+ 4.4 NL, CO2 mildly low at 20. Gap 17.4. Cr 2.48 and BUN 33. GFR 27. Glucose 120, calcium minimally elevated at 10.3. Protein 8.3. Bili 0.6. AST 23, alt 23. Plt normal. Sodium chloride was given in ER, now on maintenance fluids. DR. Wu talked with Dr. Weinstein with [facility] and denied admit at that time. Recommended admit here, fluid hydrate and recheck in AM. This history received from ER was not the full history. Patient is a very poor historian. He comes in tonight with 8-10 bouts of diarrhea starting today. 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 I contacted his PCP, DR. Sotomayor, who was incredibly pleasant and helpful tonight. Patient is due to f/u with him on 11/14/17 and has regular cardiology DR. Dumont. The patient cardiac meds included Cardizem metoprolol XL 100 QHS, Lisinopril 40mg ? (Hold for now). Follows with local psych provider Phong Limon. Celexa 20mg daily, valium 10mg 4x daily. Patient noted 4-5 years ago treated with 90 days of Harvoni, never went back for his visit. Dr. Sotomayor noted patient cancelled appt with himon 07/06, 07/13,07/18,08/03, 08/08 and eventually had appt on 08/14 after receiving letter. No provider for many years, very difficult to follow history at that time. History of CAD, AFIB. ?Stent placed. Psych sees him, cardiology sees him. Intermittent chest pain, bilateral Foot neuropathy worse along digit 4/5. Allergy list compared and agree with above. H/o Anxiety, arthritis, Significant HTN, emphysema, heavy smoker 1.5+ ppd, history of Hep C, history of TB. Both of last 2 have been treated per patient report for long time. Last OV vitals per PCP 120/70, normal rhythm, 98% RA, 228 lb, lumbago, straight leg -, sensation bilateral feet reduced. ?History of hypothyroid vs subclinical hypothyroid and he noted he was put on thyroid hormone for a while. ER visit 06/16/17 with TSH of 5.196. NO free T4. His CBC was very similar to that from today, WBC is mildly higher now, plt are okay. K+ stable then and now 4.2 then and 4.4 now. GFR was 77 and now 27. Calcium minimally elevated today at 10.3. Protein mildly elevated and SG on urine 1.020 suggests mild dehydration. He has pain in his bladder and radiates into his back. He has reported difficulty urinating just now that he has been in ER. Unknown history, as noted incredibly hard to follow. He claims he was on eliquis but stopped as he was "A Time BomB of a stroke waiting to happen." He reports BP swings form normal up to 180/120 which is normal for him. 2 years ago "FORCED ME TO LEAVE NONDENOMINATIONAL THEY SAID NOTHING CAN HELP YOU" He noted he was on a vasotec drip and this di dnot help so they kicked him out. I discussed that does not happen if BP is not controlled, asked if something else happened and he swore on the accuracy. Decreased urine output today. Diarrhea started today, suprapubic pain, cramping, stool incontinence. Unknown if prostate inflamed, no rectal exam done in ER. 4 Family members are on dialysis, he cannot tell me more. Unknown Dx. Chronic A flutter, CARLOS. No recent changes in meds. Takes them at 7pm and needs them. We will resume his home doses of cardizem and metoprolol. He reports 150mg XL once daily, PCP notes it was 100. I will go with the 100mg for now. Valium 10mg QID will be ordered/continued. Celexa 20mg no e/o hypo/hypernatremia I will continue this for now. I will hold lisinopril for now. He is not on the gabapentin, stopped this from PCP as he did not like the way it made him feel. Now with lower abdominal pain/cramping in bladder area comes and goes rates this at 6/10. He has morphine ordered. CrCl currently at 47ml/min based on weight of 218. [place] Weight of 156 makes CrCl 33ml/min. Still >30 at this time. He has no chest pain now, no chest pain today, no history of CHF, no history of fluid overload status. Maintenance fluids should be 111 ml/hour up to 166ml/hour for 1.5x maintenance. He has already been bolused. Will check CMP again in am. Non bloody diarrhea x 8 bouts. CBC stable. Nuclear stress 02/2017 EF 63% NL LV function, no ischemia per PCP Dr. Sotomayor, NL EKG at that time. - Review of Systems Constitutional: chills, weakness, sweats, fatigue, loss of appetite. No: fever , other Eyes: No: blurred vision, double-vision, discharge, itching, pain, redness, photophobia, other Ears: No: pain, bleeding, drainage, ringing, hearing loss, other Nose: No: bleeding, congestion, discharge, other Throat: No: pain, swelling, voice change, other Mouth: No: bleeding, pain, swelling, other Respiratory: cough, shortness of air. No: wheeze, hemoptysis, pain with breathing, other Cardiovascular: chest pain (intermittent, none actively at this time. ), palpitations (a Flutter chronically). No: left arm pain, diaphoresis, PND, orthopnea, edema, syncope, other Gastrointestinal: abdominal pain, nausea, diarrhea, other (incontinence of urine ). No: vomiting, melena, hematemesis, hematochezia, dysphagia, constipation Genitourinary: dysuria Neurological: headache (generalized poorly localized rated at 3/10 throbbing aching. ), dizziness, numbness (bilateral feet chronically). No: seizure, weakness, speech difficulty, problems with walking, tremor, fainting, other Musculoskeletal: pain (back chronically) Skin: other (covered in drywall mud). No: rash, pruritus, lacerations, wounds, bruising Immunology: No: hives, itching, frequent infections, difficulty healing, other Hematology: No: easy bruising, easy bleeding, swollen glands, other Endocrine: No: weight changes, cold intolerance, heat intolerance, excessive thirst, excessive hunger, polyuria, other Psychiatric: No: depression, anxiety, sleeplessness, hopelessness, suicidal, hallucinations, other Habits: tobacco use. No: substance use, alcohol use, other - Past Medical History Past Medical History: Hep C treated, TB treated, HTN, anxiety, chronic low back pain, poor historian, ?Subclinical hypothyroidism, peripheral neuropathy, obesity BMI 32. CAD, Aflutter. - Past Surgical History Past Surgical History: Mastoidectomy - Allergies Allergies/Adverse Reactions: Allergies Allergy/AdvReac Type Severity Reaction Status Date / Time divalproex sodium Allergy Verified 10/29/17 16:43 [From Depakote] lithium Allergy Verified 10/29/17 16:43 Penicillins Allergy Verified 10/29/17 16:43 - Medications Medications: Medications Generic Name Dose Route Start Last Admin Trade Name Freq PRN Reason Stop Dose Admin Aspirin 81 mg 10/30/17 09:00 Aspirin Chewable PO DAILY HALEY Diltiazem HCl 30 mg 10/29/17 21:00 Cardizem PO BEDTIME HALEY Sodium Chloride 1,000 mls @ 60 mls/hr 10/29/17 18:41 10/29/17 18:15 Sodium Chloride IV 10/30/17 11:20 60 mls/hr .[id number] STA Administration Sodium Chloride 1,000 mls @ 75 mls/hr 10/29/17 19:00 Sodium Chloride IV .[id number] HALEY Nitroglycerin 0.4 mg 10/29/17 18:49 Nitrostat SL Q5MIN X 3 DOSES PRN Angina Non-Formulary Medication 75 mg 10/29/17 21:00 Metoprolol Succinate [Metoprolol Succinate] PO BID HALEY Non-Formulary Medication 10 mg 10/29/17 18:50 Diazepam [Valium] PO QID PRN Anxiety Sodium Chloride 1 syr 10/29/17 16:41 10/29/17 17:09 Saline Flush IVF 1 syr PRN PRN Administration To flush IV - Family History Past Family History: Sister: CAD, CKD, DM, thyroid disease. Father: CAD, CKD Stent. Mother: CAD, CKD, heart murmur, DM, Goiter - Social History Past Social History: Prominent tobacco use, smoking 1.5 ppd >20+ years, chewing 1 can of tobacco per day. . Lives alone. 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 - Vital Signs Temperature: 98.3 F Pulse Rate: 74 Respiratory Rate: 20 Blood Pressure: 112/76 O2 Sat by Pulse Oximetry: 97 - Body Composition Height: 5 ft 9 in Weight: 218 lb 6.4 oz Body Mass Index (BMI): 32.2 - Physical Examination HEENT: Constitutional: Appearance-No acute distress, Poor historian, difficult to follow. Speech is normal/controlled. Appears stated age. Orientation- Oriented x 3, alert Gait-Normal pace, normal arm movement. Build and Nutrition-[Obese Male] General- Patient is pleasant and cooperative with the interview and exam. Integumentary: General-No rashes, ulcers or lesions. He is disheveled, wearing old clothing. Covered in dry wall/mud. Palpation- Normal skin moisture/ turgor. Skin is warm to touch, appropriate. Capillary refill is normal bilateral Upper and lower extremity. Head/Neck: Head- normocephalic and atraumatic. Neck- without visible/palpable lumps or pulsations. Palpation- No bony tenderness about head/neck along frontal, occipital, temporal, parietal, mastoid, jawline, zygoma, orbit or any other location. NO temporal artery tenderness. No TMJ tenderness. Neck Supple. Thyroid-No thyromegaly, no nodules Eye: Bilaterally PERRLA, EOMI. No discharge. Upper and lower eyelids are normal. Sclera/conjunctiva normal without discharge. Cornea is normal and clear. Lens is normal. Eyeball appears normal. No ciliary flushing, no conjunctival injection. ENMT: Pinna- normal without tenderness or erythema. External auditory canal Left- normal without erythema or discharge, no excessive cerumen. External auditory canal Right-normal without erythema or discharge, no excessive cerumen. TM left- Mclean/pearly, normal light reflex and anatomy TM Right- Mclean/ pearly, normal light reflex and anatomy Hearing Assessment-normal to conversational speech. Nose and sinus- No sinus tenderness along frontal/ maxillary region. External appearance normal and midline. Nares- bilateral quiet airflow, no discharge. Nasal mucosa- No bleeding noted and no ulcerations observed. [place], moist. Turbinates non boggy. Lips- normal color, moist without cracks/lesions Oral Cavity/Palate- hard/soft palate intact without lesions, oral mucosa pink and moist. Dentition assessed [] and discussed appropriate oral care. Tongue normal midline. Oropharynx- no pharyngeal erythema, Uvula midline. No post nasal drip. No exudate. Salivary glands- Non tender to palpation CHEST/LUNG: Inspection- symmetric chest wall no pectus deformity. Normal effort , no distress, no use of accessory muscles. Palpation- nontender sternum, ribline. No abnormal pulsations. Auscultation- Breath sounds normal throughout all lung [place]. Normal tracheal sounds, Normal bronchial sounds overlying sternum, Bronchovessicular sounds normal between scapulae posteriorly, Normal vessicular breath sounds heard throughout periphery. Lungs are clear today. Adventitious sounds- No wheezes, rales, rhonchi. CARDIOVASCULAR: Palpation/Percussion- Normal PMI, no palpable thrill Auscultation- Irregular irreg rhythem with rate <100, rate controlled likely with home BB/CCB. Distant heart sounds, no prominent murmur noted in sitting, supine positions. Extremities- no edema, no increased warmth. no pitting. ABDOMEN: Inspection- normal and no visible pulsations. Normal contour. Auscultation- Bowel sounds normal, no abdominal bruits. Palpation/Percussion- soft, Mild RUQ tenderness, mild suprapubic tenderness. no rebound tenderness, no rigidity (guarding), no jar tenderness, no masses. Liver- +hepatomegaly 3-4 fingers below costal margin with percussion. Rectal not examined. : Prostate is heterogenously enlarged, tender and firm. Patient noted pain into tip of penis when palpating prostate. Nurse present on examination. Prostate size of small gris. Testicles normal,symmetrical,non tender, no hernia within inguinal region. Peripheral Vascular: Upper extremity Left- Normal temperature with pink nailbeds and no ulcerations. Upper extremity Right- Normal temperature with pink nailbeds and no ulcerations. Lower extremity- Normal temperature with pink nailbeds and no ulcerations. DP pulses 1+ bilaterally. Reduced Pedal hair. Normal capillary refill. Edema- No edema. Musculoskeletal: Generalized-No generalized swelling or edema of extremities, no digital clubbing or cyanosis, neurovascularly intact all four extremities. Upper extremity- Symmetrical posture. No visible deformity. Normal sensation along medial and lateral upper extremity proximally and distally. NO tenderness overlying shoulder, lateral/medial epicondyle. [employer] 5/5 and strength 5/5 bilateral UE. Elbow palpated, no tenderness overlying olecranon. Normal supination, pronation to active/passive ROM and to resisted rotation. Bicep insertion/tricep insertion appear normal without obvious pathology. Rotator cuff evaluated and intact. Normal wrist ROM bilaterally. Normal hand movement, intrinsic muscles of hands normal. No tenderness to palpation of hands/wrists/ elbows. Lower extremity- Hip: Not tender to palpation, no pain, no swelling, edema or erythema of surrounding tissue, normal strength and tone. Normal appearing hip ROM bilaterally without pain. Knee: Knee ROM normal. No tenderness overlying trochanters, no tenderness about patella, quad tendon, patellar tendon. No tenderness at tibial tuberosity. Ankle: normal ROM not tender to palpation along medial/lateral malleolus. Normal straight leg raise, normal hallux strength. Normal knee quad sets. Spine/Ribs- No deformities, masses. Tenderness along pantline. no known fractures,n o falls, no ecchymosis, normal strength, Normal gait. No obvious ROM deficit. Normal stability No tenderness along C/T/L spinous process. Pantline localized tenderness. Normal appearing ROM about spine. Neurological: General- Moves all 4 extremities symmetrically. Symmetrical face and body posture. Cranial nerves- individually evaluated II-XII and intact. PERRLA, Normal EOMI, visual/special senses appear intact, Face is symmetrical and normal sensation/movement, normal tongue, normal strength/posture of neck musculature. Reflexes- intact with DTR 2+ patellar, Achilles, bicep, brachial, tricep. Ankle clonus normal with 2 beats. Strength- 5/5 bilateral UE and LE. Soft touch- intact bilateral UE and LE. Temperature sensation- intact bilateral UE and LE. []Cerebellar testing-Rapid alternating movements intact. Heel rodgers intact. Able to walk normal gait, normal heel toe walking. Balance- Romberg intact. Normal Walking, heel toe walking, tip toe and heel walking normal. Neuropsych: Very difficult historian, hard to follow. Oriented- Person, place, time. (AAOx3), Mood/affect- normal and congruent. Able to articulate well. Speech-Normal speech, normal rate, normal tone, normal use of language, volume and coherence. Thought content- normal with ability to perform basic computations and apply abstract thought/reason. Associations- intact, no SI/HI, no hallucinations, delusions, obsessions. Judgment/insight- Appropriate. Memory -Recall intact, remote and recent memory intact. Knowledge- Age appropriate fund of knowledge, concentration and attention span normal. Lymphatic: Head/Neck- normal size and non tender to palpation. Axillary- normal size and non tender to palpation. Femoral and Inguinal- normal size and non tender to palpation. - Lab/Tests/Diagnostic Imaging Lab/Tests/Diagnostic Imaging: Laboratory Last Values WBC 13.13 K/ul (4.2-10.2) H 10/29/17 17:06 RBC 5.44 10^6/ul (4.70-6.10) 10/29/17 17:06 Hgb 16.4 g/dl (14.0-18.0) 10/29/17 17:06 Hct 46.6 % (42.0-52.0) 10/29/17 17:06 MCV 85.7 fl (80.0-94.0) 10/29/17 17:06 MCH 30.1 pg (27.0-31.0) 10/29/17 17:06 MCHC 35.2 (31.8-35.4) 10/29/17 17:06 RDW Coeff of Denise 12.5 % (11.6-14.8) 10/29/17 17:06 Plt Count 281 10^3/uL (140-440) 10/29/17 17:06 Immature Gran % (Auto) 0.3 % (0.0-5.0) 10/29/17 17:06 Neut % (Auto) 52.8 10/29/17 17:06 Lymph % (Auto) 34.5 (10.0-50.0) 10/29/17 17:06 [place] % (Auto) 10.8 (0-10) H 10/29/17 17:06 Eos % (Auto) 1.4 % (0.0-7.0) 10/29/17 17:06 Baso % (Auto) 0.2 % (0.0-3.0) 10/29/17 17:06 Immature Gran # (Auto) 0.0 (0.0-1.0) 10/29/17 17:06 Neut # (Auto) 6.9 K/ul (2.0-6.9) 10/29/17 17:06 Lymph # (Auto) 4.5 K/uL (0.60-3.4) H 10/29/17 17:06 [place] # (Auto) 1.4 K/uL (0.4-2.0) 10/29/17 17:06 Eos # (Auto) 0.2 K/ul (0.0-0.7) 10/29/17 17:06 Baso # (Auto) 0.0 K/uL (0-0.2) 10/29/17 17:06 Sodium 136 mmol/L (136-145) 10/29/17 17:06 Potassium 4.4 mmol/L (3.5-5.1) 10/29/17 17:06 Chloride 103 mmol/L (98-107) 10/29/17 17:06 Carbon Dioxide 20 mmol/L (21-32) L 10/29/17 17:06 Anion Gap 17.4 10/29/17 17:06 BUN 33 mg/dL (7-18) H 10/29/17 17:06 Creatinine 2.48 mg/dL (0.60-1.10) H 10/29/17 17:06 Estimated GFR (MDRD) 27.00 mL/min 10/29/17 17:06 BUN/Creatinine Ratio 13.30 10/29/17 17:06 Glucose 120 mg/dL (70-100) H 10/29/17 17:06 Calcium 10.3 mg/dL (8.2-10.2) H 10/29/17 17:06 Total Bilirubin 0.6 mg/dL (0.00-1.20) 10/29/17 17:06 AST 23 U/L (15-37) 10/29/17 17:06 ALT 23 U/L (12-78) 10/29/17 17:06 Alkaline Phosphatase 93 U/L (50-136) 10/29/17 17:06 Total Protein 8.3 g/dL (6.4-8.2) H 10/29/17 17:06 Albumin 4.3 g/dL (3.4-5.0) 10/29/17 17:06 Globulin 4.0 10/29/17 17:06 Albumin/Globulin Ratio 1.08 10/29/17 17:06 Urine Color Yellow (YELLOW) 10/29/17 18:50 Urine Clarity Clear (CLEAR) 10/29/17 18:50 Urine pH 5.5 (5-9) 10/29/17 18:50 Ur Specific [place] 1.020 (1.005-1.030) 10/29/17 18:50 Urine Protein Negative (NEGATIVE) 10/29/17 18:50 Urine Glucose (UA) Negative (NEGATIVE) 10/29/17 18:50 Urine Ketones Negative (NEGATIVE) 10/29/17 18:50 Urine Blood Trace-intact (NEGATIVE) 10/29/17 18:50 Urine Nitrite Negative (NEGATIVE) 10/29/17 18:50 Urine Bilirubin Negative (NEGATIVE) 10/29/17 18:50 Urine Urobilinogen 0.2 (0.2) 10/29/17 18:50 Ur Leukocyte Esterase Negative (NEGATIVE) 10/29/17 18:50 Urine Microscopic RBC 0-2 (0-2) 10/29/17 18:50 Ur Squamous Epith Cells Not present (0-5) 10/29/17 18:50 CT Abd/pelvis without, negative for obstruction or acute process. EKG:Atrial flutter. Rate 92. QRS 84, QTC 430, PRT 266/11/9. Up in I up in AVF , up in II and own in III. No obviou sST/T changes due to saw shape of p waves. - Assessment (1) CARLOS (acute kidney injury) Status: Acute Code(s): N17.9 - ACUTE KIDNEY FAILURE, UNSPECIFIED SNOMED Code (s): 75282797 (2) Heavy tobacco smoker Status: Acute Code(s): F17.200 - NICOTINE DEPENDENCE, UNSPECIFIED, UNCOMPLICATED SNOMED Code(s): 97551828, 796008279 (3) Atrial flutter Status: Acute Code(s): I48.92 - UNSPECIFIED ATRIAL FLUTTER SNOMED Code(s): 4162707 (4) BMI 32.0-32.9,adult Status: Acute Code(s): Z68.32 - BODY MASS INDEX (BMI) 32.0-32.9, ADULT SNOMED Code(s): 150321809 (5) CAD (coronary artery disease) Status: Acute Code(s): I25.10 - ATHSCL HEART DISEASE OF [place] CORONARY ARTERY W/O ANG PCTRS SNOMED Code(s): 93958038 (6) Polypharmacy Status: Acute Code(s): Z79.899 - OTHER [place] (CURRENT) DRUG THERAPY SNOMED Code(s): 513634383 (7) Anxiety Status: Acute Code(s): F41.9 - ANXIETY DISORDER, UNSPECIFIED SNOMED Code(s) : 19197960 (8) Abdominal pain Status: Acute Code(s): R10.9 - UNSPECIFIED ABDOMINAL PAIN SNOMED Code(s): 45064231 Qualifiers: Abdominal location: generalized Qualified Code(s): R10.84 - Generalized abdominal pain (9) Diarrhea Status: Acute Code(s): R19.7 - DIARRHEA, UNSPECIFIED SNOMED Code(s): 23131494 (10) History of hepatitis C Status: Acute Code(s): Z86.19 - PERSONAL HISTORY OF OTHER INFECTIOUS AND PARASITIC DISEASES SNOMED Code(s): 66265234573279, 88571468060566 (11) Prostatitis Status: Acute Code(s): N41.9 - INFLAMMATORY DISEASE OF [place]OST[place], UNSPECIFIED SNOMED Code(s): 0891807 - Plan Plan: Abdominal pain/Diarrhea: ONly 8 bouts of diarrhea would be odd to have patient enter into CARLOS. However working out in 80+ degree weather. His history was incredibly hard to follow. History of HEp C. History of TB. Was working today reported some weird food and then he had Diarrhea and symptoms starting this am. He has had total of 8 bouts of diarrhea, tolerating liquids PO, he notes he is drinking plenty of water. Bolused in Er. I will have them collect 24 hours urine to start/consider FeNA. he is not on diuretic. Ddx for the diarrhea includes Gastroenteritis, Prostatitis, UTI/Ascending UTI, Colitis/ Enteritis. No bloody emesis/diarrhea by history. Mild to moderate cramping, mild abdominal pain. Mandaen was asked for admit and declined. Patient admitted here for IV fluid hydration, overnight monitoring and to repeat labs in am. Consider transfer if same/worse Cr. If better, monitor and consider d/ c in a few days. Gu examination positive for tender prostate, pain radiating into tip of penis, back pain. He is on celexa. QTC 430 already in flutter. I will treat with bactrim DS 1/2 PO BID (CrCl ~30). - Stool GI Panel PCR. - Continue NS 115 ml/hour (111 ml/hour maint and 166 ml/hour is 1.5x maint) - REpeat CMp in am - Repeat CBC in am - Urinalysis with microscopic - Thyroid labs in am. - Ethanol level. - 24 hour sodium urine - Re-eval in am. - Bactrim DS 1/2 tablet BID for ?prostatitis. CARLOS: Unknown etiology. Last Cr 1.0 06/2017 on our labs and he had GFR 77 now down to ~27. CrCl 33 based on ideal weight of 156 lb. He has BMI of 32. Weight loss encouraged. Out in heat today, diarrhea x 8. Lower urinary symptoms, SG in urine 1.020. He has been bolused, I have held lisinopril, he is not on nephrotoxic meds. We will repeat CMP in am. He was normal 06/2017. At this time ?gastroenteritis, ?acute dehydration, ?prostatitis on ddx. No outlet obstruction on CT. I will check Renal US in am. NPO after midnight - US renal in am. - Post void residual in am. Atrial Flutter: ?Chronic, ?Rate Controlled, ?ASA only as he was on eliquis at one point and this was stopped. We will try to reach out to his cardiology tomorrow, I will consult with Dr. garcía tomorrow as well. NO chest pain now, has nitro at home, not using this. No reported pain in chest today. He had ? nose bleed this am, ?Significance to that. I will treat him with lovenox 30mg subcut once daily as his CrCl is borderline ~30. This should do okay for him. CHADS2-VASC score of 2 points, Stroke risk 2.2% per year roughly. He is at moderate high risk and would likely benefit from anticoagulation. As noted, I do not know why the rx was stopped. ?Insurance issue. He has chronic HTN, seems controlled now at goal <140/90. Rate controlled with cardizem. - Metoprolol 100mg XL daily (Dose is questionable, this was dose given to me over phone by PCP). - Contact Dr. Dumont in am to discuss case with him - Cardizem 30 mg po QHS - ASA 81 mg EC daily. - Dr. García consult for am. HTN: We do not have succinate. Reported 100mg by PCP 150mg by him. If we only have tartrate, I will use 75mg BID. - HOme meds at bedtime. History of chronic hep C: AST/ALT normal, hepatomegaly clinically. I will check PT/INR. - PT/INR. - UDS - ETOH History of TB: No active disease, treated historically. BMI 32: Weight loss encouraged. [place] body weight 156. Heavy Tobacco Use: Tobacco Cessation discussed today for 2 minutes. We reviewed lifestyle choices and discussed quitting. Ready to quit status discussed. The risks and hazards of continued tobacco abuse were discussed with the patient today and total tobacco cessation as recommended. It was clearly and unambiguously explained that continued tobacco usage will adversely affect overall morbidity and mortality of the patient. Patient was informed that tobacco use can lead to numerous cancers, worsening of cardiovascular and pulmonary systems and that lung damage is often permanent and irreversible. I advised the patient to inform me if any further assistance is requested, as we can offer counseling services, nicotine replacement inhaled, patch, lozenge, gum , or prescription medications to include Chantix or Wellbutrin for assistance. I will reassess the interest in tobacco cessation at the next and all subsequent visits. - Nicoderm 21mg/day. - Not allowed to leave hospital to smoke. Diet: normal diet for now. NPO after midnight for tests. DVT Prophy: I will treat with Subcut lovenox 30mg daily based on CARLOS status. Disposition: Admit to inpatient status with diarrhea, abdominal pain and CARLOS. Mandaen has declined admit at this time in light of his ?Dehydration status and instruction given to admit here for fluid rehydation and to reassess labs in am. We will do this. 70 minutes spent on admission today. Contacted and d/w PCP, discussed with DR. Wu in [place]. Reviewed labs, EKG, imaging. History very difficult to follow. Summarized as best as possible. The patient has possible prostatitis, possible diarrheal illness w/non bloody diarrhea.
[2017-10-29] MEDS ORDERED: NICODERM 21 MG TD SCH (21:00)
[2017-10-29] MEDS ORDERED: METOPROLOL SUCCINATE PO SCH (21:00)
[2017-10-29] MEDS ORDERED: CARDIZEM PO SCH (21:00)
[2017-10-29] MEDS ORDERED: LOVENOX SUBCUT SCH (22:00)
[2017-10-29] MEDS ORDERED: VALIUM ONE (22:05)
[2017-10-29] MEDS: NON-FORMULARY MEDICATION (Diazepam [Valium] 10 MG) PO PRN (22:14)
[2017-10-29] MEDS: BACTRIM DS 800/160 MG PO SCH (22:43)
[2017-10-29] MEDS: LOPRESSOR PO STA ×2 (22:51→23:20)
[2017-10-29] MEDS: MORPHINE 2 MG/ML SYRINGE IVP PRN (22:52)
[2017-10-29] MEDS ORDERED: TOPROL XL ONE (23:03)
[2017-10-29] MEDS: SODIUM CHLORIDE 1,000 ML IV SCH (23:07)
[2017-10-29] MEDS ORDERED: TOPROL XL PO STA (23:13)
[2017-10-30] MEDS: MORPHINE 2 MG/ML SYRINGE IVP PRN ×3 (02:59→13:57)
[2017-10-30] MEDS ORDERED: VALIUM ONE (04:54)
[2017-10-30] MEDS: NON-FORMULARY MEDICATION (Diazepam [Valium] 10 MG) PO PRN (05:33)
[2017-10-30] MEDS: SODIUM CHLORIDE 1,000 ML IV SCH (06:35)
[2017-10-30] MEDS ORDERED: VALIUM PO PRN (07:04)
[2017-10-30] MEDS ORDERED: ASPIRIN CHEWABLE PO SCH (08:00)
--- NOTE | 2017-10-30 08:02 | PCM.PROG ---
Subjective: 57 yr old white male seen in rounds this am room 108-1 at 7:20 am. Labs reviewed and patient creatinine has improved greatly from 2.48 to 1.35 and GFR improved from 27 to 55. UDS returned positive for amp, meth, chepe, ETOH negative. I talked with him about this and he said that there was no way. He just got off 4 year parole from cocaine and he has not done this in 4 years. He said he has never done meth. THC was negative but he did admit to smoking a joint 3-4 days ago. I asked if he has snorted/injected or smoked anything, he said no. Uncertain how this would have happened, except that he took these agents. Bladder scan with <20 ml in bladder. HE has had a uout overnight of 0.5-1ml/kg/hr w/ 400ml out this am. Urine still w/ SG 1.020. He has had fluids running through night and has asked for pain meds regularly. I am concerned about the seeking behavior. He did have prostate tenderness on examination and is on bactrim 1/2 tablet. If renal function improves, I will continue to use this agent. We decided not to use Fluorquinolone as the patient is in aflutter/afib regularly by EKG on Tele. BP is elevated, which can be explained from withdrawal/substance abuse. He is on his home BP medications. We checked a variety of labs this am, leukocytosis is now resolved. Hgb stable , plt stable. Liver function testing PT/INR normal. Mild drop in K+ from 4.4 to 3.7. Biggest improvement was in renal function. I will monitor his K+, if < 3.5 we will give him potassium orally. We discussed if kidney function continues to remain stable/improve we may discharge home this pm or tomorrow am. I asked him multiple times about drugs and he denies them. I asked if he used anything from anyone else and he asked why they would do that to him. I asked what he meant and he said why would someone give my something. I noted I did not know if they did or did not. Patient history is again very disjointed. He is preoccupied with food and with pain meds for his abdominal pain. No reported diarrhea while in hospital. No reported emesis while in hospital. At this time BP is elevated at. 145/106 at last check. We will make sure he has his regular medication. Highest SBP since last night 16:37 was at 22:00 with 158, highest DBP 106 at 0547 thi ana rosa. Pulse 144 at 22:00 else remains <100. He did get lovenox in abdomen. Will discharge with f/u with PCP and cardiology this week. I will increase lovenox to 40mg subcut for today. NPO for am Renal US. Abd pain 8/10 this am, still suprapubic and into back/perineal area. Throbbing , pulsing. Pain into tip of penis. Normal exam last night but rectal showed tender enlarged prostate size of gris. We have him on appropriate abx, due to renal failure I have used 1/2 Bactrim DS and we will consider advancing this if he continues to improve. REVIEW OF SYMPTOMS: (Positives bolded) General: weight loss, fever, chills, night sweats, fatigue, appetite loss HEENT: blurry vision, eye pain, eye discharge, dry eyes, decreased vision, sore throat tinnitus, bloody nose, hearing loss, sinus pain/pressure, ear pain/ pressure. Respiratory: shortness of breath, cough, hemoptysis, wheezing, pleurisy, Cardiovascular: chest pain, PND, palpitation, edema, orthopnea, syncope, swelling of extremities Gastro: Nausea, vomiting, diarrhea (NONE IN HOSPITAL SINCE ADMIT), hematemesis, abdominal pain, constipation Genito: hematuria, dysuria, glycosuria, hesitancy, frequency, incontinence [place]: Arthralgia, myalgia, muscle weakness, joint swelling, NSAID use Skin: rash, pruritis, sores, nail changes, skin thickening, change in wart/mole , itching, rash, new lesions, pruritus, nail changes Neuro: Migraine, numbness, ataxia, tremor, vertigo, weakness, memory loss, Irritability, dizziness Endocrine: excessive thirst, polyuria, cold intolerance, heat intolerance, goiter Psychiatric: depression, anxiety, anti-depressants, alcohol abuse, drug abuse, i nsomnia, change in sleep pattern and mood changes Heme/lymph: easy bruising, bleeding gums, blood clots, swollen glands, lymphedema, Allergic/immune: allergic rhinitis, hay fever, asthma, hives Objective: Vital Signs - 24 hr 10/29/17 10/29/17 10/29/17 16:37 19:49 22:00 Temperature 98.3 F 97.8 F 97.6 F Pulse Rate 74 98 H 144 H Respiratory 20 18 21 Rate Blood Pressure 112/76 158/91 H O2 Sat by Pulse 97 96 96 Oximetry 10/29/17 10/30/17 10/30/17 22:35 02:00 05:47 Temperature 98.3 F 97.5 F L 97.3 F L Pulse Rate 74 88 78 Respiratory 20 20 24 Rate Blood Pressure 112/76 146/98 H 145/106 H O2 Sat by Pulse 97 97 98 Oximetry Constitutional: Appearance-No acute distress, Poor historian, difficult to follow. Speech is normal/controlled. Asleep on entry easily awoken. Orientation- Oriented x 3, alert Gait-Normal pace, normal arm movement. Build and Nutrition-[Obese Male] General- Patient again is pleasant and cooperative with the interview and exam. Integumentary: General-No rashes, ulcers or lesions. He is disheveled, wearing old clothing. Has showered, no longer Covered in dry wall/mud. Palpation- Normal skin moisture/turgor. Skin is warm to touch, appropriate. Capillary refill is normal bilateral Upper and lower extremity. Head/Neck: Head- normocephalic and atraumatic. Neck- without visible/palpable lumps or pulsations. Palpation- No bony tenderness about head/neck along frontal, occipital, temporal, parietal, mastoid, jawline, zygoma, orbit or any other location. NO temporal artery tenderness. No TMJ tenderness. Neck Supple. Thyroid-No thyromegaly, no nodules Eye: Bilaterally PERRLA, EOMI. No discharge. Upper and lower eyelids are normal. Sclera/conjunctiva normal without discharge. Cornea is normal and clear. Lens is normal. Eyeball appears normal. No ciliary flushing, no conjunctival injection. ENMT: Nasal mucosa- No bleeding noted and no ulcerations observed. [place], moist. Turbinates non boggy. Lips- normal color, moist without cracks/lesions Oral Cavity/Palate- hard/soft palate intact without lesions, oral mucosa pink and moist. Dentition assessed and poor dentition. Tongue normal midline. Oropharynx- no pharyngeal erythema, Uvula midline. No post nasal drip. No exudate. Salivary glands- Non tender to palpation CHEST/LUNG: Inspection- symmetric chest wall no pectus deformity. Normal effort , no distress, no use of accessory muscles. Palpation- nontender sternum, ribline. No abnormal pulsations. Auscultation- Breath sounds normal throughout all lung delgadillo. Normal tracheal sounds, Normal bronchial sounds overlying sternum, Bronchovessicular sounds normal between scapulae posteriorly, Normal vessicular breath sounds heard throughout periphery. Lungs are essentially clear today. Rare scattered adventitious sounds seeemd to clear w/ cough. Adventitious sounds- Scattered wheezes, No rales, Scattered rhonchi. CARDIOVASCULAR: Palpation/Percussion- Normal PMI, no palpable thrill Auscultation- Irregular irreg rhythm with rate <100, rate controlled likely with home BB/CCB. Distant heart sounds, no prominent murmur noted in sitting, supine positions. Extremities- no edema, no increased warmth. no pitting. ABDOMEN: Inspection- normal and no visible pulsations. Normal contour. Auscultation- Bowel sounds normal, no abdominal bruits. Palpation/Percussion- soft, Mild RUQ tenderness, mild suprapubic tenderness. no rebound tenderness, no rigidity (guarding), no jar tenderness, no masses. Liver- +hepatomegaly 3-4 fingers below costal margin with percussion. Rectal not examined. : Did not repeat this am. Peripheral Vascular: Upper extremity Left- Normal temperature with pink nailbeds and no ulcerations. Upper extremity Right- Normal temperature with pink nailbeds and no ulcerations. Lower extremity- Normal temperature with pink nailbeds and no ulcerations. DP pulses 1+ bilaterally. Reduced Pedal hair. Normal capillary refill. Edema- No edema. Musculoskeletal: Generalized-No generalized swelling or edema of extremities, no digital clubbing or cyanosis, neurovascularly intact all four extremities. Spine/Ribs- No deformities, masses. Tenderness along pantline. no known fractures,n o falls, no ecchymosis, normal strength, Normal gait. No obvious ROM deficit. Normal stability No tenderness along C/T/L spinous process. Pantline localized tenderness, persists. When I talked with PCP last night he noted chronic pain. Normal appearing ROM about spine. Neurological: General- Moves all 4 extremities symmetrically. Symmetrical face and body posture. Cranial nerves- individually evaluated II-XII and intact. PERRLA, Normal EOMI, visual/special senses appear intact, Face is symmetrical and normal sensation/movement, normal tongue, normal strength/posture of neck musculature. Reflexes- intact with DTR 2+ patellar, Achilles, bicep, brachial, tricep. Ankle clonus normal with 2 beats. Strength- 5/5 bilateral UE and LE. Soft touch- intact bilateral UE and LE. Temperature sensation- intact bilateral UE and LE. Neuropsych: Very difficult historian, hard to follow. Oriented- Person, place, time. (AAOx3), Mood/affect- SEEKING BEHAVIOR. Wanted Food and pain meds, did not care much about his other issues. Denied use of drugs. Able to articulate well. Logical minded. Speech-Normal speech, normal rate, normal tone, normal use of language, volume and coherence. Thought content- normal with ability to perform basic computations and apply abstract thought/reason. Associations- intact, no SI/HI, no hallucinations, delusions, obsessions. Judgment/insight- Appropriate. Memory-Recall intact, remote and recent memory intact. Knowledge- Age appropriate fund of knowledge, concentration and attention span normal. Lymphatic: Head/Neck- normal size and non tender to palpation. Axillary- normal size and non tender to palpation. Femoral and Inguinal- normal size and non tender to palpation. Laboratory Last Values WBC 8.76 K/ul (4.2-10.2) 10/30/17 06:15 RBC 5.00 10^6/ul (4.70-6.10) 10/30/17 06:15 Hgb 15.0 g/dl (14.0-18.0) 10/30/17 06:15 Hct 43.4 % (42.0-52.0) 10/30/17 06:15 MCV 86.8 fl (80.0-94.0) 10/30/17 06:15 MCH 30.0 pg (27.0-31.0) 10/30/17 06:15 MCHC 34.6 (31.8-35.4) 10/30/17 06:15 RDW Coeff of Denise 12.6 % (11.6-14.8) 10/30/17 06:15 Plt Count 199 10^3/uL (140-440) 10/30/17 06:15 Immature Gran % (Auto) 0.2 % (0.0-5.0) 10/30/17 06:15 Neut % (Auto) 44.4 10/30/17 06:15 Lymph % (Auto) 42.5 (10.0-50.0) 10/30/17 06:15 Long % (Auto) 9.6 (0-10) 10/30/17 06:15 Eos % (Auto) 3.0 % (0.0-7.0) 10/30/17 06:15 Baso % (Auto) 0.3 % (0.0-3.0) 10/30/17 06:15 Immature Gran # (Auto) 0.0 (0.0-1.0) 10/30/17 06:15 Neut # (Auto) 3.9 K/ul (2.0-6.9) 10/30/17 06:15 Lymph # (Auto) 3.7 K/uL (0.60-3.4) H 10/30/17 06:15 Long # (Auto) 0.8 K/uL (0.4-2.0) 10/30/17 06:15 Eos # (Auto) 0.3 K/ul (0.0-0.7) 10/30/17 06:15 Baso # (Auto) 0.0 K/uL (0-0.2) 10/30/17 06:15 PT 9.7 SEC (9.3-11.0) 10/29/17 17:06 INR 0.97 SI (0.0-3.9) 10/29/17 17:06 APTT 25.6 SEC (23.9-40.0) 10/29/17 17:06 Sodium 135 mmol/L (136-145) L 10/30/17 06:15 Potassium 3.7 mmol/L (3.5-5.1) 10/30/17 06:15 Chloride 108 mmol/L (98-107) H 10/30/17 06:15 Carbon Dioxide 21 mmol/L (21-32) 10/30/17 06:15 Anion Gap 9.7 10/30/17 06:15 BUN 23 mg/dL (7-18) H 10/30/17 06:15 Creatinine 1.35 mg/dL (0.60-1.10) H D 10/30/17 06:15 Estimated GFR (MDRD) 55.00 mL/min 10/30/17 06:15 BUN/Creatinine Ratio 17.03 10/30/17 06:15 Glucose 104 mg/dL (70-100) H 10/30/17 06:15 Calcium 8.6 mg/dL (8.2-10.2) 10/30/17 06:15 Total Bilirubin 0.3 mg/dL (0.00-1.20) 10/30/17 06:15 AST 18 U/L (15-37) 10/30/17 06:15 ALT 18 U/L (12-78) 10/30/17 06:15 Alkaline Phosphatase 88 U/L (50-136) 10/30/17 06:15 Total Protein 7.3 g/dL (6.4-8.2) 10/30/17 06:15 Albumin 3.6 g/dL (3.4-5.0) 10/30/17 06:15 Globulin 3.7 10/30/17 06:15 Albumin/Globulin Ratio 0.97 10/30/17 06:15 TSH 5.621 uIU/L (0.3400-4.8200) H 10/30/17 06:15 Free T4 1.07 ng/dL (0.59-1.17) 10/30/17 06:15 Urine Color Yellow (YELLOW) 10/29/17 18:50 Urine Clarity Clear (CLEAR) 10/29/17 18:50 Urine pH 5.5 (5-9) 10/29/17 18:50 Ur Specific [place] 1.020 (1.005-1.030) 10/29/17 18:50 Urine Protein Negative (NEGATIVE) 10/29/17 18:50 Urine Glucose (UA) Negative (NEGATIVE) 10/29/17 18:50 Urine Ketones Negative (NEGATIVE) 10/29/17 18:50 Urine Blood Trace-intact (NEGATIVE) 10/29/17 18:50 Urine Nitrite Negative (NEGATIVE) 10/29/17 18:50 Urine Bilirubin Negative (NEGATIVE) 10/29/17 18:50 Urine Urobilinogen 0.2 (0.2) 10/29/17 18:50 Ur Leukocyte Esterase Negative (NEGATIVE) 10/29/17 18:50 Urine Microscopic RBC 0-2 (0-2) 10/29/17 18:50 Ur Squamous Epith Cells Not present (0-5) 10/29/17 18:50 Urine Opiates Screen Positive (NEGATIVE) 10/29/17 08:45 Ur Oxycodone Screen Negative (NEGATIVE) 10/29/17 08:45 Urine Methadone Screen Negative (NEGATIVE) 10/29/17 08:45 Ur Propoxyphene Screen Negative (NEGATIVE) 10/29/17 08:45 Ur Barbiturates Screen Negative (NEGATIVE) 10/29/17 08:45 U Tricyclic Antidepress Negative (NEGATIVE) 10/29/17 08:45 Ur Phencyclidine Scrn Negative (NEGATIVE) 10/29/17 08:45 Ur Amphetamine Screen Positive (NEGATIVE) 10/29/17 08:45 U Methamphetamines Scrn Positive (NEGATIVE) 10/29/17 08:45 U Benzodiazepines Scrn Negative (NEGATIVE) 10/29/17 08:45 Urine Cocaine Screen Positive (NEGATIVE) 10/29/17 08:45 U Cannabinoids Screen Negative (NEGATIVE) 10/29/17 08:45 Plasma/Serum Alcohol < 10.0 mg/dL (0.0-80.0) 10/29/17 22:41 Na/K Trends 10/29/17 10/30/17 Range/Units 17:06 06:15 Sodium 136 135 L (136-145) mmol/L Potassium 4.4 3.7 (3.5-5.1) mmol/L BUN/CR Trends 10/29/17 10/30/17 Range/Units 17:06 06:15 BUN 33 H 23 H (7-18) mg/dL Creatinine 2.48 H 1.35 H D (0.60-1.10) mg/dL Bladder scan 13 ml per nursing (Report not yet back). Renal US this am. Cardiology consult this am. (1) CARLOS (acute kidney injury) Status: Acute Code(s): N17.9 - ACUTE KIDNEY FAILURE, UNSPECIFIED SNOMED Code (s): 68545433 (2) Atrial flutter Status: Chronic Code(s): I48.92 - UNSPECIFIED ATRIAL FLUTTER SNOMED Code(s) : 0113830 (3) Abdominal pain Status: Acute Code(s): R10.9 - UNSPECIFIED ABDOMINAL PAIN SNOMED Code(s): 77877151 (4) CAD (coronary artery disease) Status: Chronic Code(s): I25.10 - ATHSCL HEART DISEASE OF [place] CORONARY ARTERY W/O ANG PCTRS SNOMED Code(s): 28872960 (5) Diarrhea Status: Resolved Code(s): R19.7 - DIARRHEA, UNSPECIFIED SNOMED Code(s): 17380616 (6) Anxiety Status: Chronic Code(s): F41.9 - ANXIETY DISORDER, UNSPECIFIED SNOMED Code(s ): 32573649 (7) Polypharmacy Status: Chronic Code(s): Z79.899 - OTHER HALF-WAY (CURRENT) DRUG THERAPY SNOMED Code(s): 966673012 (8) History of hepatitis C Status: Chronic Code(s): Z86.19 - PERSONAL HISTORY OF OTHER INFECTIOUS AND PARASITIC DISEASES SNOMED Code(s): 92870954119417 (9) Prostatitis Status: Acute Code(s): N41.9 - INFLAMMATORY DISEASE OF PROSTATE, UNSPECIFIED SNOMED Code(s): 3914171 (10) Cocaine use Status: Acute Code(s): F14.90 - COCAINE USE, UNSPECIFIED, UNCOMPLICATED SNOMED Code(s): 343159185 (11) Methamphetamine use Status: Acute Code(s): F15.10 - OTHER STIMULANT ABUSE, UNCOMPLICATED SNOMED Code(s): 528289872 (12) Marijuana use Status: Acute Code(s): F12.90 - CANNABIS USE, UNSPECIFIED, UNCOMPLICATED SNOMED Code(s): 221050139 (13) Heavy tobacco smoker Status: Chronic Code(s): F17.200 - NICOTINE DEPENDENCE, UNSPECIFIED, UNCOMPLICATED SNOMED Code(s): 20117034 (14) BMI 32.0-32.9,adult Status: Chronic Code(s): Z68.32 - BODY MASS INDEX (BMI) 32.0-32.9, ADULT SNOMED Code(s): 579623281 Plan: CARLOS: Renal function has improved. Bladder scan with low residual. He did have e/o prostatitis on examination and we chose to use 1/2 Bactrim DS due to his then CrCl of ~30. NOw with renal improvement, we can likely increase his Bactrim to full strength. I will await CMP at around lunch and if stable/better , decide about ?home on 1/2strength bactrim DS vs full strength bactrim DS> I agree that this was likely dehydration. However new history has been obtained. History of usp, history of 4 yr parole, history of cocaine use. UDS here in hospital + Chepe, +meth, +Amp, + opiate (morphine), negative for THC but he actually admitted to that one and denied all the others. I am pleased with the function improvement of the renal system. I have cancelled 24 hour protein at this time, we will continue the renal US. As noted if continued improvement, we will consider home this pm vs tomorrow am as he was likely prerenal, dehydration and now improved. - CMP 12:30 ordered - Monitor Potassium, consider adding oral K+ if <3.5. Monitor for now. Abdominal Pain: [place] diagnosis is Prostatitis. Pain Persists. As noted,I suspect ?Prostatitis. He has no fever but his symptoms are consistent with that. Urine culture is pending. UA today essentially unchanged. Neg leukocytosis, neg CT scan. Bladder residual does not show obstruction. No e/o constipation. No diarrhea since being admitted to hospital. At this time pain best described by prostate. He was given 1/2 tablet Bactrim DS last night. I will continue this for now, advance to full strength if symptoms continue to improve. CrCl today is 61ml/min and markedly better from ~30 from last night. - COntinue fluid hydration - Continue pain meds - Continue bactrim 1/2 tablet this am. - Advance to full tablet of bactrim this pm/discharge - MOnitor I+O Hep C: Liver enzymes stable, he does appear to clinically have hepatomegaly. Liver enzymes stable, PT/INR good. HTN: Resume home meds. Drug effect, drug withdrawal likely involved. Continue the valium that is his home med. Monitor BP. No chest pain, no vision changes. He is aware BP level goal <140/90. Aflutter/Afib: I will advance him to 40mg subcut of lovenox. I would consider using eliquis again after hospital stay. [id number] score >2. Non compliant. Risks of bleeding, risks of drug use, multiple high risk issues. Since he has cardiology outpatient, I will try to contact them to see if patient can see them MICHI to discuss this matter further. 30mg subcut lovenox yesterday due to decr renal function. I will increase this to 40 now that crcl improved. - Increase lovenox from 30 to 40 subcut daily. Subclinical hypothyroid: TSH 5.621 and free T4 1.07. Based on guidelines by the [place] [employer], it is not recommended to treat this until symptomatic or until history of TSH >10. With AFIB/Flutter adding levothyroxine may precipitate/worsen afib. Monitor. Drug Seeking behavior: He was aware of how often he could have pain meds and asking to the minute for these. Abnl UDS as well. Diet: NPO for renal US this am. DVT prophy: Lovenox to inrease to 40. NO epistaxis in hospital. Clot/stroke/[place] risk high for this patient. Benefit to use of agent outweighs any risk. We will use lovenox. Drug use: Story does not make sense. He denies use of cocaine and meth/amph but admitted to THC and THC was neg. He noted today history of usp, 4 year parole. Story is disjointed, difficult to follow. Monitor BP, continue to monitor. Tobacco: Again d/w patient cessation. ON nicotine patch. Dispo: UDS does not make sense as he was negative for benzo and takes valium regularly. He denied drug use, yet had history of usp/parole due to drugs. Afib/flutter not treated with anticoag likely due to non compliance and bleeding risks. However, while in hospital, I have opted to cover with this due to his risks. He is more preoccupied with food/pain meds than with anything else. Story of simple diarrhea/CARLOS from ER was not satisfactory to this case as there are many more layers to the patient history. Liver function is okay. My plan after talking with patient this am is to repeat CMP this afternoon. If stable/improved, I will talk with him about going home this evening/tomorrow am with f/u with PCP in next few days and cardiology as well. >35 minutes spent in rounding on this patient today. I appreciate DR. Mckeon and his assistance with this patient.
[2017-10-30] MEDS: BACTRIM DS 800/160 MG PO SCH (08:04)
[2017-10-30 09:46] VITALS: BP 150/97; TEMP 97.6
--- NOTE | 2017-10-30 11:45 | US ---
EXAM: RENAL ULTRASOUND, BILATERAL HISTORY: Acute kidney injury FINDINGS: Ultrasound renal, bilateral. Fernandes-scale ultrasound and color Doppler imaging was performe d. The right kidney measures 10.9 x 4.6 x 5.0 centimeters. The left kidney measures 10.5 x 6.7 x 4.1 centimeters. General cortical echogenicity and volume are normal for age. No solid or cystic cortical masses. No hydronephrosis is identified. The visualized urinary bladder was grossly normal. IMPRESSION: Findings within normal limits sonographically.
[2017-10-30] MEDS ORDERED: NON-FORMULARY MEDICATION (Metoprolol Succinate [Metoprolol Succinate] 100 MG) PO SCH (17:00)
[2017-10-30] MEDS ORDERED: TOPROL XL PO SCH (17:00)
--- NOTE | 2017-10-30 17:01 | PCM.DC ---
Final Diagnosis: All Active Problems CARLOS (acute kidney injury) (Acute)/Abdominal pain (Acute): Suspected Prostatitis: Abnormal UDS Positives: Cocaine use (Acute) Methamphetamine use (Acute) Reported Marijuana Use UDS negative Anxiety (Chronic) Atrial flutter (Chronic) BMI 32.0-32.9,adult (Chronic) CAD (coronary artery disease) (Chronic) Heavy tobacco smoker (Chronic) History of hepatitis C (Chronic) History of tuberculosis Polypharmacy (Chronic) Essential HTN (Chronic) (1) CARLOS (acute kidney injury) Status: Acute Code(s): N17.9 - ACUTE KIDNEY FAILURE, UNSPECIFIED SNOMED Code (s): 78327529 (2) Atrial flutter Status: Chronic Code(s): I48.92 - UNSPECIFIED ATRIAL FLUTTER SNOMED Code(s) : 9058955 (3) Abdominal pain Status: Acute Code(s): R10.9 - UNSPECIFIED ABDOMINAL PAIN SNOMED Code(s): 57816803 Qualifiers: Abdominal location: generalized Qualified Code(s): R10.84 - Generalized abdominal pain (4) CAD (coronary artery disease) Status: Chronic Code(s): I25.10 - ATHSCL HEART DISEASE OF [place] CORONARY ARTERY W/O ANG PCTRS SNOMED Code(s): 30471259 (5) Diarrhea Status: Resolved Code(s): R19.7 - DIARRHEA, UNSPECIFIED SNOMED Code(s): 45640576 (6) Anxiety Status: Chronic Code(s): F41.9 - ANXIETY DISORDER, UNSPECIFIED SNOMED Code(s ): 92672263 (7) Polypharmacy Status: Chronic Code(s): Z79.899 - OTHER CHARGE MANAGER (CURRENT) DRUG THERAPY SNOMED Code(s): 338909686 (8) History of hepatitis C Status: Chronic Code(s): Z86.19 - PERSONAL HISTORY OF OTHER INFECTIOUS AND PARASITIC DISEASES SNOMED Code(s): 53053873257707, 15121357379334 (9) Prostatitis Status: Acute Code(s): N41.9 - INFLAMMATORY DISEASE OF PROSTATE, UNSPECIFIED SNOMED Code(s): 7871400 (10) Cocaine use Status: Acute Code(s): F14.90 - COCAINE USE, UNSPECIFIED, UNCOMPLICATED SNOMED Code(s): 691309187 (11) Methamphetamine use Status: Acute Code(s): F15.10 - OTHER STIMULANT ABUSE, UNCOMPLICATED SNOMED Code(s): 223217122 (12) Marijuana use Status: Acute Code(s): F12.90 - CANNABIS USE, UNSPECIFIED, UNCOMPLICATED SNOMED Code(s): 850992174 (13) Heavy tobacco smoker Status: Chronic Code(s): F17.200 - NICOTINE DEPENDENCE, UNSPECIFIED, UNCOMPLICATED SNOMED Code(s): 66396934, 393065933 (14) BMI 32.0-32.9,adult Status: Chronic Code(s): Z68.32 - BODY MASS INDEX (BMI) 32.0-32.9, ADULT SNOMED Code(s): 079344123 Reason for Hospitalization: 1. Diarrhea 8 bouts, CARLOS w/ Creatinine 2.48 GFR 27 down from previous GFR 77 and Cr 1.0. 2. Abnl UDS 3. HTN 4. A Flutter. Prognosis at Discharge: Improved. Renal function improved from 2.48 creatinine to 1.30. GFR 27 to 57. Baseline remains ~1.0 and he has improved steadily last 2 checks. He wanted to go after this lab as he felt better and needed to go [place] the courthouse for "non legal things." No diarrhea in hospital. Condition at Discharge: Stable/Improved. Day of discharge physical Examination: Vital Signs - 24 hr 10/29/17 10/29/17 10/29/17 19:49 22:00 22:35 Temperature 97.8 F 97.6 F 98.3 F Pulse Rate 98 H 144 H 74 Respiratory 18 21 20 Rate Blood Pressure 158/91 H 112/76 O2 Sat by Pulse 96 96 97 Oximetry 10/30/17 10/30/17 10/30/17 02:00 05:47 09:45 Temperature 97.5 F L 97.3 F L 97.6 F Pulse Rate 88 78 70 Respiratory 20 24 20 Rate Blood Pressure 146/98 H 145/106 H 150/97 H O2 Sat by Pulse 97 98 90 L Oximetry Constitutional: Appearance-No acute distress, Poor historian, difficult to follow. Speech is normal/controlled. Asleep on entry easily awoken. Orientation- Oriented x 3, alert Gait-Normal pace, normal arm movement. Build and Nutrition-[Obese Male] General- Patient again is pleasant and cooperative with the interview and exam. Integumentary: General-No rashes, ulcers or lesions. He is disheveled, wearing old clothing. Has showered, no longer Covered in dry wall/mud. Palpation- Normal skin moisture/turgor. Skin is warm to touch, appropriate. Capillary refill is normal bilateral Upper and lower extremity. Head/Neck: Head- normocephalic and atraumatic. Neck- without visible/palpable lumps or pulsations. Palpation- No bony tenderness about head/neck along frontal, occipital, temporal, parietal, mastoid, jawline, zygoma, orbit or any other location. NO temporal artery tenderness. No TMJ tenderness. Neck Supple. Thyroid-No thyromegaly, no nodules Eye: Bilaterally PERRLA, EOMI. No discharge. Upper and lower eyelids are normal. Sclera/conjunctiva normal without discharge. Cornea is normal and clear. Lens is normal. Eyeball appears normal. No ciliary flushing, no conjunctival injection. ENMT: Nasal mucosa- No bleeding noted and no ulcerations observed. [place], moist. Turbinates non boggy. Lips- normal color, moist without cracks/lesions Oral Cavity/Palate- hard/soft palate intact without lesions, oral mucosa pink and moist. Dentition assessed and poor dentition. Tongue normal midline. Oropharynx- no pharyngeal erythema, Uvula midline. No post nasal drip. No exudate. Salivary glands- Non tender to palpation CHEST/LUNG: Inspection- symmetric chest wall no pectus deformity. Normal effort , no distress, no use of accessory muscles. Palpation- nontender sternum, ribline. No abnormal pulsations. Auscultation- Breath sounds normal throughout all lung delgadillo. Normal tracheal sounds, Normal bronchial sounds overlying sternum, Bronchovessicular sounds normal between scapulae posteriorly, Normal vessicular breath sounds heard throughout periphery. Lungs are essentially clear today. Rare scattered adventitious sounds seeemd to clear w/ cough. Adventitious sounds- Scattered wheezes, No rales, Scattered rhonchi. CARDIOVASCULAR: Palpation/Percussion- Normal PMI, no palpable thrill Auscultation- Irregular irreg rhythm with rate <100, rate controlled likely with home BB/CCB. Distant heart sounds, no prominent murmur noted in sitting, supine positions. Extremities- no edema, no increased warmth. no pitting. ABDOMEN: Inspection- normal and no visible pulsations. Normal contour. Auscultation- Bowel sounds normal, no abdominal bruits. Palpation/Percussion- soft, Mild RUQ tenderness, mild suprapubic tenderness. no rebound tenderness, no rigidity (guarding), no jar tenderness, no masses. Liver- +hepatomegaly 3-4 fingers below costal margin with percussion. Rectal not examined. : Did not repeat this am. (LAST NIGHT ENLARGED FIRM, Non nodular with prominent tenderness radiating into tip of penis). Peripheral Vascular: Upper extremity Left- Normal temperature with pink nailbeds and no ulcerations. Upper extremity Right- Normal temperature with pink nailbeds and no ulcerations. Lower extremity- Normal temperature with pink nailbeds and no ulcerations. DP pulses 1+ bilaterally. Reduced Pedal hair. Normal capillary refill. Edema- No edema. Musculoskeletal: Generalized-No generalized swelling or edema of extremities, no digital clubbing or cyanosis, neurovascularly intact all four extremities. Spine/Ribs- No deformities, masses. Tenderness along pantline. no known fractures,n o falls, no ecchymosis, normal strength, Normal gait. No obvious ROM deficit. Normal stability No tenderness along C/T/L spinous process. Pantline localized tenderness, persists. chronic pain. Straight leg raise negative. Normal appearing ROM about spine. Neurological: General- Moves all 4 extremities symmetrically. Symmetrical face and body posture. Cranial nerves- individually evaluated II-XII and intact. PERRLA, Normal EOMI, visual/special senses appear intact, Face is symmetrical and normal sensation/movement, normal tongue, normal strength/posture of neck musculature. Reflexes- intact with DTR 2+ patellar, Achilles, bicep, brachial, tricep. Ankle clonus normal with 2 beats. Strength- 5/5 bilateral UE and LE. Soft touch- intact bilateral UE and LE. Temperature sensation- intact bilateral UE and LE. Neuropsych: Very difficult historian, hard to follow. Oriented- Person, place, time. (AAOx3), Mood/affect- SEEKING BEHAVIOR. Wanted Food and pain meds, did not care much about his other issues. Denied use of drugs. Able to articulate well. Logical minded and very odd in comparison to UDS. Speech-Normal speech, normal rate, normal tone, normal use of language, volume and coherence. Thought content- normal with ability to perform basic computations and apply abstract thought/reason. Associations- intact, no SI/HI, no hallucinations, delusions, obsessions. Judgment/insight- Appropriate/questionable. Memory- Recall intact, remote and recent memory intact. Knowledge- Age appropriate fund of knowledge, concentration and attention span normal. Lymphatic: Head/Neck- normal size and non tender to palpation. Axillary- normal size and non tender to palpation. Femoral and Inguinal- normal size and non tender to palpation. Medications at Discharge: Ambulatory Orders Medication Instructions Recorded Diltiazem HCl [Cardizem] 30 mg PO BEDTIME 10/30/15 Metoprolol Succinate 75 mg PO BID 05/01/16 Nitroglycerin [Nitrostat] 0.4 mg SL Q5MIN X 3 DOSES PRN 03/05/17 Aspirin [Aspirin Chewable] 81 mg PO DAILY 10/29/17 Apixaban [Eliquis] 5 mg PO BID 30 Days #60 tab 10/30/17 Hydrocodone Bit/Acetaminophen 1 tab PO TID 5 Days #15 tab 10/30/17 [Kevil 7.5-325] Sulfamethoxazole/Trimethoprim 1 tab PO Q12HR #20 tablet 10/30/17 [Bactrim Ds 800/160 mg] Lab/Diagnostics: Laboratory Last Values WBC 8.76 K/ul (4.2-10.2) 10/30/17 06:15 RBC 5.00 10^6/ul (4.70-6.10) 10/30/17 06:15 Hgb 15.0 g/dl (14.0-18.0) 10/30/17 06:15 Hct 43.4 % (42.0-52.0) 10/30/17 06:15 MCV 86.8 fl (80.0-94.0) 10/30/17 06:15 MCH 30.0 pg (27.0-31.0) 10/30/17 06:15 MCHC 34.6 (31.8-35.4) 10/30/17 06:15 RDW Coeff of Denise 12.6 % (11.6-14.8) 10/30/17 06:15 Plt Count 199 10^3/uL (140-440) 10/30/17 06:15 Immature Gran % (Auto) 0.2 % (0.0-5.0) 10/30/17 06:15 Neut % (Auto) 44.4 10/30/17 06:15 Lymph % (Auto) 42.5 (10.0-50.0) 10/30/17 06:15 Mills % (Auto) 9.6 (0-10) 10/30/17 06:15 Eos % (Auto) 3.0 % (0.0-7.0) 10/30/17 06:15 Baso % (Auto) 0.3 % (0.0-3.0) 10/30/17 06:15 Immature Gran # (Auto) 0.0 (0.0-1.0) 10/30/17 06:15 Neut # (Auto) 3.9 K/ul (2.0-6.9) 10/30/17 06:15 Lymph # (Auto) 3.7 K/uL (0.60-3.4) H 10/30/17 06:15 Mills # (Auto) 0.8 K/uL (0.4-2.0) 10/30/17 06:15 Eos # (Auto) 0.3 K/ul (0.0-0.7) 10/30/17 06:15 Baso # (Auto) 0.0 K/uL (0-0.2) 10/30/17 06:15 PT 9.7 SEC (9.3-11.0) 10/29/17 17:06 INR 0.97 SI (0.0-3.9) 10/29/17 17:06 APTT 25.6 SEC (23.9-40.0) 10/29/17 17:06 Sodium 137 mmol/L (136-145) 10/30/17 12:50 Potassium 4.1 mmol/L (3.5-5.1) 10/30/17 12:50 Chloride 108 mmol/L (98-107) H 10/30/17 12:50 Carbon Dioxide 23 mmol/L (21-32) 10/30/17 12:50 Anion Gap 10.1 10/30/17 12:50 BUN 19 mg/dL (7-18) H 10/30/17 12:50 Creatinine 1.30 mg/dL (0.60-1.10) H 10/30/17 12:50 Estimated GFR (MDRD) 57.00 mL/min 10/30/17 12:50 BUN/Creatinine Ratio 14.61 10/30/17 12:50 Glucose 121 mg/dL (70-100) H 10/30/17 12:50 Calcium 8.8 mg/dL (8.2-10.2) 10/30/17 12:50 Total Bilirubin 0.5 mg/dL (0.00-1.20) 10/30/17 12:50 AST 19 U/L (15-37) 10/30/17 12:50 ALT 18 U/L (12-78) 10/30/17 12:50 Alkaline Phosphatase 86 U/L (50-136) 10/30/17 12:50 Total Protein 7.5 g/dL (6.4-8.2) 10/30/17 12:50 Albumin 3.6 g/dL (3.4-5.0) 10/30/17 12:50 Globulin 3.9 10/30/17 12:50 Albumin/Globulin Ratio 0.92 10/30/17 12:50 TSH 5.621 uIU/L (0.3400-4.8200) H 10/30/17 06:15 Free T4 1.07 ng/dL (0.59-1.17) 10/30/17 06:15 Urine Color Yellow (YELLOW) 10/29/17 18:50 Urine Clarity Clear (CLEAR) 10/29/17 18:50 Urine pH 5.5 (5-9) 10/29/17 18:50 Ur Specific Odum 1.020 (1.005-1.030) 10/29/17 18:50 Urine Protein Negative (NEGATIVE) 10/29/17 18:50 Urine Glucose (UA) Negative (NEGATIVE) 10/29/17 18:50 Urine Ketones Negative (NEGATIVE) 10/29/17 18:50 Urine Blood Trace-intact (NEGATIVE) 10/29/17 18:50 Urine Nitrite Negative (NEGATIVE) 10/29/17 18:50 Urine Bilirubin Negative (NEGATIVE) 10/29/17 18:50 Urine Urobilinogen 0.2 (0.2) 10/29/17 18:50 Ur Leukocyte Esterase Negative (NEGATIVE) 10/29/17 18:50 Urine Microscopic RBC 0-2 (0-2) 10/29/17 18:50 Ur Squamous Epith Cells Not present (0-5) 10/29/17 18:50 Urine Opiates Screen Positive (NEGATIVE) 10/29/17 08:45 Ur Oxycodone Screen Negative (NEGATIVE) 10/29/17 08:45 Urine Methadone Screen Negative (NEGATIVE) 10/29/17 08:45 Ur Propoxyphene Screen Negative (NEGATIVE) 10/29/17 08:45 Ur Barbiturates Screen Negative (NEGATIVE) 10/29/17 08:45 U Tricyclic Antidepress Negative (NEGATIVE) 10/29/17 08:45 Ur Phencyclidine Scrn Negative (NEGATIVE) 10/29/17 08:45 Ur Amphetamine Screen Positive (NEGATIVE) 10/29/17 08:45 U Methamphetamines Scrn Positive (NEGATIVE) 10/29/17 08:45 U Benzodiazepines Scrn Negative (NEGATIVE) 10/29/17 08:45 Urine Cocaine Screen Positive (NEGATIVE) 10/29/17 08:45 U Cannabinoids Screen Negative (NEGATIVE) 10/29/17 08:45 Plasma/Serum Alcohol < 10.0 mg/dL (0.0-80.0) 10/29/17 22:41 BUN/CR Trends 10/29/17 10/30/17 10/30/17 Range/Units 17:06 06:15 12:50 BUN 33 H 23 H 19 H (7-18) mg/dL Creatinine 2.48 H 1.35 H D 1.30 H (0.60-1.10) mg/dL H/H Trends 10/29/17 10/30/17 Range/Units 17:06 06:15 Hgb 16.4 15.0 (14.0-18.0) g/dl Hct 46.6 43.4 (42.0-52.0) % Renal US 10/30/17: Normal sonographic findings CT abd/pelvis without contrast: 10/29/17: NO acute findings. Prominent atherosclerosis Echocardiogram 10/30/17: PEnding at discharge verbal data supports normal preserved EF and valvular function. A flutter to afib and needs anticoagulation. Stool PCR ordered: NO stool in hospital no diarrhea in 24 hours from time of admit to discharge. Cancelled order Post void residual bladder scan: 13 ml. Follow-ups: 1. PCP 1 week 2. Cardiology 1 week. Disposition: HOME SELF-CARE Hospital Course: 57 YO white male present to ER 10/29/17 with vague history of 8 bouts of diarrhea and was found to be in CARLOS with CR 2.48 and GFR 27. ER staff contacted local [facility] and they declined admit, recommended that we admit with fluids and monitor/repeat labs to show prerenal causes/dehydration. I was contacted yesterday afternoon and went and saw the patient. History was very disjointed, could not be followed and very tangential. Mood was fine, he was Awake/alert and oriented just very fragmented. History of Hep C treated with harvoni, History of TB treated multiple years ago. He has chronic tobacco use. He was in long-term and just got off 4 years parole for drug use. Drug screen in hospital + Opiates (he got these in hospital), +Amp, +Meth, + Cocaine. He declined the meth, amp and cocaine but admitted to pot. This was negative, benzo was negative despite QID use of valium from local psych provider. COMPOUND SPECIALIST was checked, fluid bolus in ER, fluids maintenance 110ml/hr NS started. We checked EKG noted a flutter. Contacted PCP to check some of the history. We continued his home meds, placed him on lovenox of 30mg subcut daily (CrCl just above 30) and full exam of patient was completed by me. He had diarrhea in ER, no stools while admitted. No rectal/ exam done in ER. I completed these on the floor and prostate was markedly tender. NO mention of issues on CT w/o contrast. Pain meds continued, fluids ran. NPO after midnight. This am patient had renal US, which was negative. Creatinine improved from 2.48 to 1.35 with BUN from 33 down to 23 and GFR up to 55 from 27. The patient continue to improve throughout the day. He was up walking around he was talking to nurses, going to cafeteria. WIth history of afib I did contact our improvement auditor. [id number] was >2 and he should be anticoagulated. He mentioned some story about cardiology stopped it and kept him on ASA only. He was in and out of afib/flutter on tele and we used lovenox overnight. Cardiology saw him this am, echocardiogram completed and no major findings. Per cardiology here continue current meds, add eliquis and then f/u with outpatient cardiology. Patient was itching to leave as he had to get [place]. I checked repeat CMP at 1pm today and found continued improvement in renal function, abdominal pain somewhat better and he felt he wanted to go. I contacted PCP office, discussed the above with them. He is non compliant, missed numerous appt with PCP and thus I wanted them to be aware of his d/c. We continued his home meds, wrote for him to have a few days of pain medications. Caution advised with using opiates + benzos, he was aware. I am concerned about hsi drug use. I am concerned about his non compliance. Close f/u is warranted. he left hospital stable/improved compared to where he had been. Renal function not yet back to baseline but he did not want to stay any longer and with improvement of GFR back to nearly 60, this was reasonable to d/c home. We did d/c him on bactrim full strength after CrCl improved beyond ~30. He got 1/2 pill last night 1/2 this am due to his renal status. I would like him to see PCP to see how this is improving. Prostate was large, gris sized and firm/tender with pain radiating into the the tip of the penis. Drug use denied by patient. I suspect +amp/cocaine/dehydration contributed to his CARLOS. Abdominal pain may be seeking, may also be truly from the prostate which seems inflamed. Urine culture to date negative. No blood cultures collected, never met SIRS criteria, no source of infection. PCP team aware of patient, aware of d/c and his home meds are continued except we have tried to add eliqus and insurance denied this requesting warfarin. He is on abx, which can affect warfarin, lovenox is only covered by insurance for 10 days total. I have samples of eliquis, I will provide these to him for his convenience until he can f/u with his PCP or cardiology team. [id number] exp 05/2019 #2 boxes of 14 pills. My office called him and let him know about the free samples total 28 pills, should last him 14 days. Since he will not return here to repeat INR/PT, I do not feel using the warfarin is a good idea at this time. I will give him samples. Cardiology consulted today, dictated but not yet available. Patient left hospital ambulatory as he was feeling better. Drink plenty of fluids, avoid cocaine, avoid meth, avoid NSAIDS. F/U with PCP 1 week F/U with cardiology 1 week. Plan: 1. D/C Home 2. F/U PCP in 1 week 3/ F/U Cardiology 1 week 4. Start eliquis 5mg BID SAMPLES TO BE GIVEN 5. Pain medication written rx provided, COMPOUND SPECIALIST checked. 6. R/B/A to opiates/benzos d/w patient 7. Compliance d/w patient 8. Tobacco cessation encouraged. 9. Return to ER for Shortness of breath, chest pain, worsening abdominal pain/ urinary issues/diarrhea. >30 minutes spent in discharge patient today, not including documentation time.
[2017-10-30] MEDS ORDERED: NICODERM 21 MG TD SCH (21:00)
[2017-10-30] MEDS ORDERED: LOVENOX SUBCUT SCH ×2 (21:00)
== END 2017-10-30 13:25 | disposition home or self-care (01) | DRG 392 ==
LOC: ED 16:37 → MEDSURG A 19:24
PROVIDERS: ADMIT Family Medicine; ATTEND Family Medicine
DX: R10.84 Generalized abdominal pain (principal); N17.9 Acute kidney failure, unspecified; I48.92 Unspecified atrial flutter; I25.10 Atherosclerotic heart disease of native coronary artery without angina pectoris; I10 Essential (primary) hypertension; R10.9 Unspecified abdominal pain; R11.2 Nausea with vomiting, unspecified; R19.7 Diarrhea, unspecified; F41.9 Anxiety disorder, unspecified; N41.9 Inflammatory disease of prostate, unspecified; F14.90 Cocaine use, unspecified, uncomplicated; F15.10 Other stimulant abuse, uncomplicated; F12.90 Cannabis use, unspecified, uncomplicated; F17.200 Nicotine dependence, unspecified, uncomplicated; Z68.32 Body mass index [BMI] 32.0-32.9, adult; Z79.899 Other long term (current) drug therapy; Z86.19 Personal history of other infectious and parasitic diseases
CPT/HCPCS: 36415; 80053; 80306; 80307; 81001; 84439; 84443; 85025; 85610; 85730; 87086; 93005; 93010; 96361; 96374; 99283

== ENCOUNTER 2018-04-01 02:24 | Emergency (ER) ==
[2018-04-01 02:35] VITALS: BP 158/116; TEMP 98.5; BMI 33.2
[2018-04-01] MEDS ORDERED: NORCO 7.5-325 PO STA (02:48)
--- NOTE | 2018-04-01 05:19 | ED.PDOC ---
General Stated Complaint: my scrotum has hurt for 2 days Time Seen by Physician: 02:30 Mode of Arrival: Walk-In Information Source: Patient Exam Limitations: No limitations Nursing and Triage Documentation Reviewed and Agree: Yes Does patient meet sepsis criteria?: No System Inflammatory Response Syndrome: Not Applicable <ESTHER HERNANDEZ - Last Filed: 04/01/18 05:17> <STEVE SALAS - Last Filed: 04/01/18 09:33> ED Provider: Dr. STEVE SALAS Chief Complaint: Scrotal Pain Sepsis Protocol: For patient's 13 years and over: Temp is 96.8 and below OR 101 and greater Pulse >90 BPM Resp >20/minute Acutely Altered Mental Status Are patient's symptoms suggestive of a new infection, such as: -Pneumonia -Skin, Soft Tissue -Endocarditis -UTI -Bone, Joint Infection -Implantable Device -Acute Abdominal Infection -Wound Infection -Meningitis -Blood Stream Catheter Infection -Unknown Complaint Exam - Complaint/Exam Patient Complains of: Reports: Scrotal pain, Scrotal swelling Onset/Duration: 2 days ago Symptoms Are: Still present Timing: Constant Initial Severity: Mild Current Severity: Moderate Location of Pain: Reports: Right, Scrotum Character: Reports: Dull Aggravating: Reports: Straining, Palpation Alleviating: Reports: Scrotal elevation Associated Signs and Symptoms: Reports: Scrotal pain, Scrotal swelling Related History: Reports: Similar episode Abdominal Findings: Present: None Genitalia Exam: Present: Testes tender, Scrotal swelling Differential Diagnoses: Epididymitis <ESTHER HERNANDEZ Last Filed: 04/01/18 05:17> Review of Systems - Review Of Systems Constitutional: Reports: No symptoms Eyes: Reports: No symptoms Ears, Nose, Mouth, Throat: Reports: No symptoms Respiratory: Reports: No symptoms Cardiac: Reports: No symptoms GI: Reports: No symptoms : Reports: No symptoms, Dysuria, Pain Musculoskeletal: Reports: No symptoms Skin: Reports: No symptoms Neurological: Reports: No symptoms Endocrine: Reports: No symptoms Hematologic/Lymphatic: Reports: No symptoms All Other Systems: Reviewed and Negative <ESTHER HERNANDEZ Last Filed: 04/01/18 05:17> Past Medical History - Past Medical History Previously Healthy: Yes Endocrine: Reports: Hypothyroid Cardiovascular: Reports: CAD, Hypertension, A-Fib Respiratory: Reports: None Hematological: Reports: None Gastrointestinal: Reports: Liver (Hepatitis C ) Genitourinary: Reports: None Neuro/Psych: Reports: None Musculoskeletal: Reports: None Cancer: Reports: None - Surgical History General Surgical History: Reports: Other (tympanic mastoidectomy) - Family History Family History: Reports: None - Social History Smoking Status: Current every day smoker, Heavy tobacco smoker 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) Alcohol Screening: Occasionally - Immunizations Tetanus Shot up to Date: Yes <ESTHER HERNANDEZ - Last Filed: 04/01/18 05:17> Physical Exam - Physical Exam Appearance: Well-appearing, No pain distress, Well-nourished Pain Distress: Mild Eyes: ANDREA, EOMI, Conjunctiva clear ENT: Ears normal, Nose normal, Oropharynx normal Neck: Supple Respiratory: Airway patent Cardiovascular: RRR, Pulses normal, No rub, No murmur GI/: Soft, Nontender, No masses, Bowel sounds normal, No Organomegaly Musculoskeletal: Normal strength Skin: Warm, Dry, Normal color Neurological: Sensation intact, Motor intact, Reflexes intact, Cranial nerves intact, Alert, Oriented Psychiatric: Affect appropriate, Mood appropriate <ESTHER HERNANDEZ - Last Filed: 04/01/18 05:17> Physician Notification - Case Discussed Physician Notified: dr salas Time of Notification: 07:00 <ESTHER HERNANDEZ - Last Filed: 04/01/18 05:17> Critical Care Note - Critical Care Note Total Time (mins): 0 <STEVE SALAS - Last Filed: 04/01/18 09:33> Course - Course Hematology/Chemistry: 04/01/18 09:08 04/01/18 09:08 <STEVE SALAS - Last Filed: 04/01/18 09:33> - Course Orders, Labs, Meds: Lab Review 04/01/18 04/01/18 04/01/18 06:50 09:08 09:08 WBC 14.14 H RBC 5.38 Hgb 15.7 Hct 46.2 MCV 85.9 MCH 29.2 MCHC 34.0 RDW Coeff of Denise 12.5 Plt Count 195 Immature Gran % (Auto) 0.4 Neut % (Auto) 83.1 Lymph % (Auto) 8.1 L [place] % (Auto) 7.4 Eos % (Auto) 0.8 Baso % (Auto) 0.2 Immature Gran # (Auto) 0.1 Neut # (Auto) 11.8 H Lymph # (Auto) 1.2 [place] # (Auto) 1.0 Eos # (Auto) 0.1 Baso # (Auto) 0.0 Sodium 134.0 L Potassium 4.05 Chloride 96.1 L Carbon Dioxide 27.2 Anion Gap 14.75 BUN 16.9 Creatinine 1.25 H Estimated GFR (MDRD) 60.00 BUN/Creatinine Ratio 13.52 Glucose 115.1 H Lactic Acid Calcium 9.07 Total Bilirubin 0.81 AST 23.0 ALT 19.3 Alkaline Phosphatase 113.2 Total Protein 8.53 H Albumin 4.45 Globulin 4.08 Albumin/Globulin Ratio 1.09 Urine Color Yellow Urine Clarity Clear Urine pH 7.0 Ur Specific [place] 1.015 Urine Protein Negative Urine Glucose (UA) Negative Urine Ketones Negative Urine Blood 1+ Urine Nitrite Positive Urine Bilirubin Negative Urine Urobilinogen 0.2 Ur Leukocyte Esterase 3+ Urine Microscopic RBC 0-2 Urine Microscopic WBC 20-30 Ur Squamous Epith Cells Not present Urine Bacteria 2+ 04/01/18 09:08 WBC RBC Hgb Hct MCV MCH MCHC RDW Coeff of Denise Plt Count Immature Gran % (Auto) Neut % (Auto) Lymph % (Auto) [place] % (Auto) Eos % (Auto) Baso % (Auto) Immature Gran # (Auto) Neut # (Auto) Lymph # (Auto) [place] # (Auto) Eos # (Auto) Baso # (Auto) Sodium Potassium Chloride Carbon Dioxide Anion Gap BUN Creatinine Estimated GFR (MDRD) BUN/Creatinine Ratio Glucose Lactic Acid 1.39 Calcium Total Bilirubin AST ALT Alkaline Phosphatase Total Protein Albumin Globulin Albumin/Globulin Ratio Urine Color Urine Clarity Urine pH Ur Specific [place] Urine Protein Urine Glucose (UA) Urine Ketones Urine Blood Urine Nitrite Urine Bilirubin Urine Urobilinogen Ur Leukocyte Esterase Urine Microscopic RBC Urine Microscopic WBC Ur Squamous Epith Cells Urine Bacteria Orders Category Date Time Status BLOOD CULTURE (ED ONLY) Stat LAB 04/01/18 09:08 Received CBC W/ AUTO DIFF Stat LAB 04/01/18 09:08 Completed COMPREHENSIVE METABOLIC PANEL Stat LAB 04/01/18 09:08 Completed LACTIC ACID Stat LAB 04/01/18 09:08 Completed PROCALCITONIN Stat LAB 04/01/18 09:08 Received UA [URINALYSIS C & S IF INDICATED] Stat LAB 04/01/18 06:50 Completed URINE CULTURE Stat LAB 04/01/18 06:50 Received Ceftriaxone Sodium [Rocephin] MEDS 04/01/18 08:56 Discontinued 1 gm IM ONCE STA Hydrocodone Bit/Acetaminophen [[place] 7.5-325] MEDS 04/01/18 02:48 Discontinued 1 tab PO ONCE STA Hydromorphone HCl [Dilaudid 0.5 mg/0.5 ml Syringe] MEDS 04/01/18 08:55 Discontinued 0.5 mg IM ONCE STA Lidocaine HCl/Pf [Lidocaine HCl 1% Sdv] MEDS 04/01/18 08:56 Discontinued 2.1 ml IM ONCE STA Morphine Sulfate [Morphine 2 mg/ml Syringe] MEDS 04/01/18 06:48 Discontinued 2 mg IM ONCE STA Morphine Sulfate [Morphine 4 mg/ml Syringe] MEDS 04/01/18 07:57 Discontinued 4 mg IM ONCE STA Morphine Sulfate [Morphine 4 mg/ml Syringe] MEDS 04/01/18 07:56 Discontinued 4 mg IVP ONCE STA Ondansetron HCl/Pf [Zofran 4 mg/2 ml] MEDS 04/01/18 06:48 Discontinued 4 mg IM ONCE STA ULTRASOUND SCROTUM [U/S SCROTUM] Stat RADS 04/01/18 05:19 Completed ULTRASOUND SCROTUM [U/S SCROTUM] Stat RADS 04/01/18 08:55 Ordered Medications Discontinued Medications Generic Name Dose Route Start Last Admin Trade Name Isma PRN Reason Stop Dose Admin Hydrocodone Bitart/Acetaminophen 1 tab 04/01/18 02:48 04/01/18 02:51 [place] 7.5-325 PO 04/01/18 02:49 1 tab ONCE STA Administration Ceftriaxone Sodium 1 gm 04/01/18 08:56 04/01/18 09:24 Rocephin IM 04/01/18 08:57 1 gm ONCE STA Administration Hydromorphone HCl 0.5 mg 04/01/18 08:55 04/01/18 09:25 Dilaudid 0.5 Mg/0.5 Ml Syringe IM 04/01/18 08:56 0.5 mg ONCE STA Administration Lidocaine HCl 2.1 ml 04/01/18 08:56 04/01/18 09:26 Lidocaine Hcl 1% Sdv IM 04/01/18 08:57 2.1 ml ONCE STA Administration Morphine Sulfate 2 mg 04/01/18 06:48 04/01/18 07:01 Morphine 2 Mg/Ml Syringe IM 04/01/18 06:49 2 mg ONCE STA Administration Morphine Sulfate 4 mg 04/01/18 07:56 04/01/18 08:08 Morphine 4 Mg/Ml Syringe IVP 04/01/18 07:57 Not Given ONCE STA Morphine Sulfate 4 mg 04/01/18 07:57 04/01/18 08:10 Morphine 4 Mg/Ml Syringe IM 04/01/18 07:58 4 mg ONCE STA Administration Ondansetron HCl 4 mg 04/01/18 06:48 04/01/18 07:02 Zofran 4 Mg/2 Ml IM 04/01/18 06:49 4 mg ONCE STA Administration Vital Signs: Temp Pulse Resp BP Pulse Ox 04/01/18 02:25 98.5 F 71 20 158/116 H 97 Departure <ESTHER HERNANDEZ - Last Filed: 04/01/18 05:17> - Departure Time of Disposition: 09:32 Pt referred to PMD for follow-up: Yes IPMP verified?: No <STEVE SALAS - Last Filed: 04/01/18 09:33> - Departure Disposition: HOME SELF-CARE Discharge Problem: Pain in scrotum, Varicocele, UTI (urinary tract infection) Hydrocele Qualifiers: Hydrocele type: unspecified Qualified Code(s): N43.3 - Hydrocele, unspecified Instructions: Varicocele (ED), Urinary Tract Infection in Men (ED) Condition: Good Additional Instructions: Please call your Family Physician as soon as possible to schedule a follow-up appointment.YOU HAVE FLUID AROUND YOUR TESTIS THIS WILL CAUSE PAIN , YOU MUST SEE YOUR DOCTOR SOON POSSIBLE . AND REFERRAL TO A UROLOGIST MAKE SURE YOU DO JUST THAT. Allergies/Adverse Reactions: Allergies divalproex sodium [From Depakote] Allergy (Verified 04/01/18 02:34) lithium Allergy (Verified 04/01/18 02:34) Penicillins Allergy (Verified 04/01/18 02:34) Home Medications: Ambulatory Orders Diltiazem HCl [Cardizem] 30 mg PO BEDTIME 10/30/15 Metoprolol Succinate 100 mg PO DAILY 05/01/16 Nitroglycerin [Nitrostat] 0.4 mg SL Q5MIN X 3 DOSES PRN 03/05/17 Aspirin [Aspirin Chewable] 81 mg PO DAILY 10/29/17 Duloxetine HCl [Cymbalta] 60 mg PO BEDTIME 04/01/18 Metoprolol Succinate 50 mg PO BEDTIME 04/01/18
[2018-04-01] MEDS ORDERED: ZOFRAN 4 MG/2 ML IM STA (06:48)
[2018-04-01] MEDS ORDERED: MORPHINE 2 MG/ML SYRINGE IM STA (06:48)
[2018-04-01] MEDS ORDERED: MORPHINE 4 MG/ML SYRINGE IVP STA (07:56)
[2018-04-01] MEDS ORDERED: MORPHINE 4 MG/ML SYRINGE IM STA (07:57)
--- NOTE | 2018-04-01 08:05 | US ---
Exam: Fernandes-scale and color duplex Doppler ultrasonographic evaluation of the testicles and scrotum. Comparison: 05/01/2016. Reason for exam: Scrotal pain and swelling. FINDINGS: The right testicle measures approximately 4.9 x 3.1 x 3.2 cm with a normal appearing echot exture. No parenchymal mass lesion is seen in the right testicle. Para There is normal appearing vascular flow to the right testicle. The right epididymis appears grossly unremarkable. Right scrotal wall measures 0.58 cm There is a moderately-sized right sided varicocele. There is a moderately-sized right-sided hydrocele. The left testicle measures approximately 4.6 x 2.1 x 2.7 cm with normal appearing vascularity and no parenchymal mass lesion. The left epididymis appears grossly unremarkable. Left scrotal wall measures 0.48 cm. Technologist reports images are limited secondary to patient's significant pain. Impression: 1. Limited evaluation secondary to patient's pain on ultrasonographic evaluation. Consider follow u p imaging when patient's pain is under better control. 2. No obvious findings of testicular torsion or parenchymal mass lesion. 3. Moderately sized right sided varicocele with a moderately-sized right-sided hydrocele.
[2018-04-01] MEDS ORDERED: DILAUDID 0.5 MG/0.5 ML SYRINGE IM STA (08:55)
[2018-04-01] MEDS ORDERED: ROCEPHIN IM STA (08:56)
[2018-04-01] MEDS ORDERED: LIDOCAINE HCL 1% SDV IM STA (08:56)
== END 2018-04-01 10:31 | disposition home or self-care (01) ==
LOC: ED 02:24
DX: N39.0 Urinary tract infection, site not specified (principal); I86.1 Scrotal varices; N43.3 Hydrocele, unspecified; N50.82 Scrotal pain; F17.210 Nicotine dependence, cigarettes, uncomplicated
CPT/HCPCS: 36415; 80053; 81001; 83605; 84145; 85025; 87040; 87086; 87186; 96372; 99283

== ENCOUNTER 2018-05-27 09:31 | Emergency (ER) ==
[2018-05-27 09:41] VITALS: BP 151/102; TEMP 97.6; BMI 33.5
[2018-05-27] MEDS ORDERED: NORCO 10-325 PO STA (09:42)
--- NOTE | 2018-05-27 10:29 | CT ---
Exam: Chest CT without contrast HISTORY: Injury right chest. Procedures: contiguous axial images were obtained through the chest without the use of contrast. Sa gittal and coronal reformatted images and three-dimensional volume rendered images were also created and reviewed. Comparison: 06/16/2017. Findings: There is no axillary lymphadenopathy. Subcentimeter lymph nodes are noted throughout the m ediastinum without radha mediastinal lymphadenopathy. There is redemonstration of calcified left hil ar nodes. Atherosclerotic disease involves the coronary arteries. There is no pericardial effusion. Limited visualization of the upper abdominal soft tissues demonstrates no lymphadenopathy. Lung wi ndows demonstrate no evidence of pneumothorax or contusion. The trachea and mainstem bronchi appear patent. Bone windows demonstrate multilevel degenerative disease throughout the spine. Linear cortical defec ts are noted involving the anterior lateral aspect of the right fourth and sixth ribs, best seen on s eries 3 images 26 and 39. Impressions: Nondisplaced fractures in the anterior lateral aspect of the right fourth and sixth ribs. No underly ing pneumothorax or pulmonary contusion identified. Evaluation of the soft tissues is limited without the use of intravenous contrast. Atherosclerosis, including the coronary arteries. Evidence of prior granulomatosis.
--- NOTE | 2018-05-27 11:02 | ED.PDOC ---
General ED Provider: Dr. STEVE GUZMAN Chief Complaint: Chest Wall Injury/Pain Stated Complaint: right chest pain after a fall from a step ladder about 4 feet on right chest Time Seen by Physician: 09:45 ( seen with nurses at all times ) Mode of Arrival: Walk-In Information Source: Patient Exam Limitations: No limitations Primary Care Provider: RANJAN MANNING Nursing and Triage Documentation Reviewed and Agree: Yes Does patient meet sepsis criteria?: No System Inflammatory Response Syndrome: Not Applicable Sepsis Protocol: For patient's 13 years and over: Temp is 96.8 and below OR 101 and greater Pulse >90 BPM Resp >20/minute Acutely Altered Mental Status Are patient's symptoms suggestive of a new infection, such as: -Pneumonia -Skin, Soft Tissue -Endocarditis -UTI -Bone, Joint Infection -Implantable Device -Acute Abdominal Infection -Wound Infection -Meningitis -Blood Stream Catheter Infection -Unknown Trauma/Injury Complaint Exam - Trauma Complaint/Exam Location of Pain or Injury: Reports: Chest (right sided ) Mechanism of Injury: Reports: Fall Onset/Duration: this morning Symptoms Are: Still present Timing of Treatment: Immediate Initial Severity: Moderate Current Severity: Moderate Character: Reports: Aching, Sharp Aggravating: Reports: Movement Alleviating: Reports: Rest, Immobilization Associated Signs and Symptoms: Denies: LOC, Confusion, Memory loss, Lethargy, Vomiting, Bleeding, Bruising, Swelling, Extremity disuse, Painful respiration, Hoarseness, Dysphagia, Hemoptysis, Significant blood loss Penetrating Injury Risk Factors: Reports: None Related Surgical History: Reports: None Nexus Low Risk Criteria: No post-midline CS tender, No evidence of intoxicat., No Altered LOC, No focal neuro deficit, No distracting injuries Immobilization Removed Post Exam: No Glascow Coma Scale (see protocol): 15 Trauma Findings: Absent: [place] eyes, Hemotympanum, Nasal deformity, Dental tenderness, Dental injury, Dental malocclusion, Neck tenderness, Neck spasm, SubQ Air, Crepitus, Airway obstructed, Trachea displaced, Labored respirations, Decreased breath sounds, Muffled heart sounds, Weak pulses, Absent pulses, Abdominal distention, Pelvic tenderness, Pelvic instability Differential Diagnoses: Abrasion, Sprain, Strain Review of Systems - Review Of Systems Constitutional: Reports: No symptoms Eyes: Reports: No symptoms Ears, Nose, Mouth, Throat: Reports: No symptoms Respiratory: Reports: Cough Cardiac: Reports: No symptoms GI: Reports: No symptoms : Reports: No symptoms Musculoskeletal: Reports: No symptoms Skin: Reports: No symptoms Neurological: Reports: No symptoms Endocrine: Reports: No symptoms Hematologic/Lymphatic: Reports: No symptoms All Other Systems: Reviewed and Negative Past Medical History - Past Medical History Previously Healthy: Yes Endocrine: Reports: Hypothyroid Cardiovascular: Reports: CAD, Hypertension, A-Fib Respiratory: Reports: None Hematological: Reports: None Gastrointestinal: Reports: Liver (Hepatitis C ) Genitourinary: Reports: None Neuro/Psych: Reports: None Musculoskeletal: Reports: None Cancer: Reports: None - Surgical History General Surgical History: Reports: Other (tympanic mastoidectomy) - Family History Family History: Reports: None - Social History Smoking Status: Current every day smoker, Heavy tobacco smoker 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) Alcohol Screening: None Physical Exam - Physical Exam Appearance: Well-appearing, No pain distress, Well-nourished Eyes: ANDREA, EOMI, Conjunctiva clear ENT: Ears normal, Nose normal, Oropharynx normal Respiratory: Airway patent, Breath sounds clear, Breath sounds equal, Respirations nonlabored Cardiovascular: RRR, Pulses normal, No rub, No murmur GI/: Soft, Nontender, No masses, Bowel sounds normal, No Organomegaly Musculoskeletal: Normal strength, ROM intact, No edema, No calf tenderness Skin: Warm, Dry, Normal color Neurological: Sensation intact, Motor intact, Reflexes intact, Cranial nerves intact, Alert, Oriented Psychiatric: Affect appropriate, Mood appropriate Interpretation - Radiology Interpretation Radiology Interpretation By: Radiologist Radiology Results: Positive (rib fracture) Critical Care Note - Critical Care Note Total Time (mins): 0 Course - Course Orders, Labs, Meds: Orders Category Date Time Status Hydrocodone Bit/Acetaminophen [Man 10-325] MEDS 05/27/18 09:42 Discontinued 1 tab PO ONCE STA CT CHEST W/O CONTRAST Stat RADS 05/27/18 09:48 Completed Medications Discontinued Medications Generic Name Dose Route Start Last Admin Trade Name Freq PRN Reason Stop Dose Admin Hydrocodone Bitart/Acetaminophen 1 tab 05/27/18 09:42 05/27/18 09:56 [place] 10-325 PO 05/27/18 09:43 1 tab ONCE STA Administration Vital Signs: Temp Pulse Resp BP Pulse Ox 05/27/18 09:36 97.6 F 57 L 20 151/102 H 95 Departure - Departure Time of Disposition: 11:02 Disposition: HOME SELF-CARE Discharge Problem: Chest wall pain, Chest injury Closed rib fracture Qualifiers: Encounter type: initial encounter Rib fracture type: multiple ribs Laterality: right Qualified Code(s): S22.41XA - Multiple fractures of ribs, right side, initial encounter for closed fracture Instructions: Rib Fracture (ED) Condition: Good Pt referred to PMD for follow-up: Yes IPMP verified?: No Additional Instructions: Please call your Family Physician as soon as possible to schedule a follow-up appointment. Allergies/Adverse Reactions: Allergies divalproex sodium [From Depakote] Allergy (Verified 05/27/18 09:35) lithium Allergy (Verified 05/27/18 09:35) Penicillins Allergy (Verified 05/27/18 09:35) Home Medications: Ambulatory Orders Diltiazem HCl [Cardizem] 30 mg PO BEDTIME 10/30/15 Metoprolol Succinate 100 mg PO DAILY 05/01/16 Nitroglycerin [Nitrostat] 0.4 mg SL Q5MIN X 3 DOSES PRN 03/05/17 Aspirin [Aspirin Chewable] 81 mg PO DAILY 10/29/17 Metoprolol Succinate 50 mg PO BEDTIME 04/01/18
== END 2018-05-27 11:10 | disposition home or self-care (01) ==
LOC: ED 09:31
DX: S22.41XA Multiple fractures of ribs, right side, initial encounter for closed fracture (principal); W11.XXXA Fall on and from ladder, initial encounter; F17.210 Nicotine dependence, cigarettes, uncomplicated
CPT/HCPCS: 99283

== ENCOUNTER 2018-07-02 11:09 | Emergency (ER) ==
[2018-07-02 11:19] VITALS: BP 155/102; TEMP 98.9; BMI 32.2
--- NOTE | 2018-07-02 11:40 | ED.PDOC ---
General ED Provider: Dr. STEVE GUZMAN Chief Complaint: Scrotal Pain Stated Complaint: SCROTAL PAIN LEFT SIDED CHRONIC Time Seen by Physician: 11:30 (JOE PRESENT AT ALL TIMES HAS NOT SEEN A URLOGIST OR FOLLOW UP WITH [facility] SINCE LAST ENCOUNTER ) Mode of Arrival: Walk-In Information Source: Patient Exam Limitations: No limitations Primary Care Provider: HAS NO M.D. HAS NOT FOLLOWED UP WITH [facility] Nursing and Triage Documentation Reviewed and Agree: Yes Does patient meet sepsis criteria?: No System Inflammatory Response Syndrome: Not Applicable (NEGATIVE TRAUMA) Sepsis Protocol: For patient's 13 years and over: Temp is 96.8 and below OR 101 and greater Pulse >90 BPM Resp >20/minute Acutely Altered Mental Status Are patient's symptoms suggestive of a new infection, such as: -Pneumonia -Skin, Soft Tissue -Endocarditis -UTI -Bone, Joint Infection -Implantable Device -Acute Abdominal Infection -Wound Infection -Meningitis -Blood Stream Catheter Infection -Unknown Complaint Exam - Complaint/Exam Patient Complains of: Reports: Scrotal pain (LEFT) Onset/Duration: CHRONIC INTERMITTENT Symptoms Are: Still present Timing: Intermittent Episodes of Voiding Over Last 12 Hours: 4 Current Severity: Mild Location of Pain: Reports: Left, Scrotum Character: Reports: Dull. Denies: Sharp, Colicky, Burning, Constant pressure, Cramping, Dark urine, Cloudy urine, Bloody urine Aggravating: Reports: None Alleviating: Reports: Scrotal elevation Associated Signs and Symptoms: Denies: Diaphoresis, Back pain, Fever, Hematuria , Dysuria, Constipation, Blood in stool, Rectal pain, Appetite change, Nausea, Vomiting, Penile swelling, Penile discharge, Decreased urine output, Increased urine frequency, Increased thirst, Decreased activity, Lethargy, Scrotal pain, Scrotal swelling, Abdominal Pain Testicular Torsion Risk Factors: Reports: None Surgical Obstruction Risk Factors: Reports: None Related Surgical History: Reports: None Abdominal Findings: Present: None Genitalia Exam: Present: Normal findings (JOE PRESENT ) Differential Diagnoses: Epididymitis, UTI Review of Systems - Review Of Systems Constitutional: Reports: No symptoms Eyes: Reports: No symptoms Ears, Nose, Mouth, Throat: Reports: No symptoms Respiratory: Reports: No symptoms Cardiac: Reports: No symptoms GI: Reports: No symptoms : Reports: Pain (LEFT TETSTIS) Musculoskeletal: Reports: No symptoms Skin: Reports: No symptoms Neurological: Reports: No symptoms Endocrine: Reports: No symptoms Hematologic/Lymphatic: Reports: No symptoms All Other Systems: Reviewed and Negative Past Medical History - Past Medical History Previously Healthy: Yes Endocrine: Reports: Hypothyroid Cardiovascular: Reports: CAD, Hypertension, A-Fib Respiratory: Reports: None Hematological: Reports: None Gastrointestinal: Reports: Liver (Hepatitis C ) Genitourinary: Reports: None Neuro/Psych: Reports: None Musculoskeletal: Reports: None Cancer: Reports: None - Surgical History General Surgical History: Reports: Other (tympanic mastoidectomy) - Family History Family History: Reports: None - Social History Smoking Status: Current every day smoker, Heavy tobacco smoker 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) Alcohol Screening: None Physical Exam - Physical Exam Appearance: Well-appearing, No pain distress, Well-nourished Eyes: ANDREA, EOMI, Conjunctiva clear ENT: Ears normal, Nose normal, Oropharynx normal Respiratory: Airway patent, Breath sounds clear, Breath sounds equal, Respirations nonlabored Cardiovascular: RRR, Pulses normal, No rub, No murmur GI/: Soft, Nontender, No masses, Bowel sounds normal, No Organomegaly Musculoskeletal: Normal strength, ROM intact, No edema, No calf tenderness Skin: Warm, Dry, Normal color Neurological: Sensation intact, Motor intact, Reflexes intact, Cranial nerves intact, Alert, Oriented Psychiatric: Affect appropriate, Mood appropriate Critical Care Note - Critical Care Note Total Time (mins): 0 Course - Course Orders, Labs, Meds: Orders Category Date Time Status CHLAMYDIA/GC AMPLIFICATION Stat LAB 07/02/18 11:31 Ordered URINALYSIS C & S IF INDICATED Stat LAB 07/02/18 11:31 Uncollected ULTRASOUND SCROTUM [U/S SCROTUM] Stat RADS 07/02/18 11:31 Ordered Vital Signs: Temp Pulse Resp BP Pulse Ox 07/02/18 11:10 98.9 F 76 20 155/102 H 94 L Departure - Departure Time of Disposition: 11:54 (left bear mesa aware ) Disposition: AMA Discharge Problem: Pain in scrotum Instructions: Scrotal Pain (ED) Condition: Good Pt referred to PMD for follow-up: Yes (REQUESTED THAT THE PT KEEP THIS APPOINTMENT WITH [facility]) IPMP verified?: No Additional Instructions: Please call your Family Physician as soon as possible to schedule a follow-up appointment.H WE DID CONTACT THE [facility] THEY WILL SEE YOU BUT, YOU MUST MAKE THE EFFORT TO GET CONNECTED WITH THE CLINIC . Allergies/Adverse Reactions: Allergies divalproex sodium [From Depakote] Allergy (Verified 05/27/18 09:35) lithium Allergy (Verified 05/27/18 09:35) Penicillins Allergy (Verified 05/27/18 09:35) Home Medications: Ambulatory Orders Diltiazem HCl [Cardizem] 30 mg PO BEDTIME 10/30/15 Metoprolol Succinate 100 mg PO DAILY 05/01/16 Nitroglycerin [Nitrostat] 0.4 mg SL Q5MIN X 3 DOSES PRN 03/05/17 Aspirin [Aspirin Chewable] 81 mg PO DAILY 10/29/17 Metoprolol Succinate 50 mg PO BEDTIME 04/01/18 Hydrocodone/Acetaminophen [[place] 10-325 Tablet] 1 each PO Q8HR #20 tablet Disposition Discussed With: Patient
== END 2018-07-02 11:40 | disposition left against medical advice (07) ==
LOC: ED 11:09
DX: N50.82 Scrotal pain (principal); F17.210 Nicotine dependence, cigarettes, uncomplicated; E03.9 Hypothyroidism, unspecified; I25.10 Atherosclerotic heart disease of native coronary artery without angina pectoris; I10 Essential (primary) hypertension
CPT/HCPCS: 99284

== ENCOUNTER 2018-09-29 14:47 | Emergency (ER) ==
[2018-09-29 14:50] VITALS: BP 145/84; TEMP 98.6; BMI 32.4
--- NOTE | 2018-09-29 15:03 | ED.PDOC ---
General ED Provider: Dr. LYSSA IRWIN Chief Complaint: Foot Pain/Injury Stated Complaint: Steped on something about a week ago; pain on distal lateral right foot. Has swelling, pain and redness on top distal lateral surface of foot. Time Seen by Physician: 15:30 Mode of Arrival: Walk-In Information Source: Patient Nursing and Triage Documentation Reviewed and Agree: Yes Does patient meet sepsis criteria?: No System Inflammatory Response Syndrome: Not Applicable Sepsis Protocol: For patient's 13 years and over: Temp is 96.8 and below OR 101 and greater Pulse >90 BPM Resp >20/minute Acutely Altered Mental Status Are patient's symptoms suggestive of a new infection, such as: -Pneumonia -Skin, Soft Tissue -Endocarditis -UTI -Bone, Joint Infection -Implantable Device -Acute Abdominal Infection -Wound Infection -Meningitis -Blood Stream Catheter Infection -Unknown Review of Systems - Review Of Systems Constitutional: Reports: No symptoms Respiratory: Reports: No symptoms Musculoskeletal: Reports: Joint pain (base R little toe) All Other Systems: Reviewed and Negative Past Medical History - Past Medical History Previously Healthy: Yes Endocrine: Reports: Hypothyroid Cardiovascular: Reports: CAD, Hypertension, A-Fib Respiratory: Reports: None Hematological: Reports: None Gastrointestinal: Reports: Liver (Hepatitis C ) Genitourinary: Reports: None Neuro/Psych: Reports: None Musculoskeletal: Reports: None Cancer: Reports: None - Surgical History General Surgical History: Reports: Other (tympanic mastoidectomy) - Family History Family History: Reports: None - Social History Smoking Status: Current every day smoker, Heavy tobacco smoker 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) Alcohol Screening: None Physical Exam - Physical Exam Appearance: Well-appearing Ill-appearing: None Pain Distress: Mild (Right distal lateral foot) Skin: Warm, Dry, Normal color (Except dorsum, right distal lateral surface) Neurological: Sensation intact, Motor intact, Alert, Oriented Psychiatric: Affect appropriate, Mood appropriate Critical Care Note - Critical Care Note Total Time (mins): 7 Course - Course Orders, Labs, Meds: Orders Category Date Time Status FOOT, RIGHT 3 VIEWS Stat RADS 09/29/18 15:02 Completed Vital Signs: Temp Pulse Resp BP Pulse Ox 09/29/18 14:48 98.6 F 67 20 145/84 H 94 L Departure - Departure Time of Disposition: 15:35 Disposition: HOME SELF-CARE Discharge Problem: Cellulitis of foot, right Instructions: Cellulitis (ED) Condition: Stable Pt referred to PMD for follow-up: Yes (Call for appointment for follow up) IPMP verified?: Yes (sabino khan) Additional Instructions: Elevate when able; antibiotics as prescribed. Pain medication as needed. Prescriptions: Hydrocodone Bit/Acetaminophen [[place] 7.5-325] 1 tab PO Q6HR PRN #12 tablet PRN Reason: pain Cephalexin [Keflex] 500 mg PO Q8HR #21 capsule Allergies/Adverse Reactions: Allergies divalproex sodium [From Depakote] Allergy (Verified 09/29/18 14:50) lithium Allergy (Verified 09/29/18 14:50) Penicillins Allergy (Verified 09/29/18 14:50) Home Medications: Ambulatory Orders Diltiazem HCl [Cardizem] 30 mg PO BEDTIME 10/30/15 Metoprolol Succinate 100 mg PO DAILY 05/01/16 Nitroglycerin [Nitrostat] 0.4 mg SL Q5MIN X 3 DOSES PRN 03/05/17 Aspirin [Aspirin Chewable] 81 mg PO DAILY 10/29/17 Metoprolol Succinate 50 mg PO BEDTIME 04/01/18 Cephalexin [Keflex] 500 mg PO Q8HR #21 capsule 09/29/18 Hydrocodone Bit/Acetaminophen [[place] 7.5-325] 1 tab PO Q6HR PRN #12 tablet 09/29 Lisinopril [Zestril] 40 mg PO DAILY 09/29/18
--- NOTE | 2018-09-29 15:20 | DI ---
EXAM: Three views of the right foot HISTORY: Pain. Possible foreign body TECHNIQUE: AP lateral, oblique views of the right foot were obtained. FINDINGS: No acute fractures are seen. No definite radiopaque foreign bodies are seen. There is mi ld loss of joint space seen within the metatarsal phalangeal articulation of the great toe. IMPRESSION: No acute fracture dislocation seen within the right foot. Mild arthritis of the right great toe.
== END 2018-09-29 15:46 | disposition home or self-care (01) ==
LOC: ED 14:47
DX: L03.115 Cellulitis of right lower limb (principal); W22.8XXA Striking against or struck by other objects, initial encounter; F17.210 Nicotine dependence, cigarettes, uncomplicated
CPT/HCPCS: 99283